=== PATIENT | male | born 1975 | race Caucasian/White ===

== ENCOUNTER 2023-07-10 04:50 | Inpatient (IN) ==
--- OUTSIDE RECORDS SUMMARY | 2023-07-10 04:54 | External Medical Summary | Summary of Care ---
Author Name Unknown Organization [facility] Address [address] [place] [facility] [place] [address] Phone [phone] Care Team Providers Care Box Office Agent Name Role Phone Vineet Alejandra MD Primary Care Provider + Reason for Visit * Reason Comments eRx-Medication Refill Encounter Details Date Type Department Care Team Description 03/24/2023 Refill Cardiology, [facility] [address] [place] [address] Doc Cunningham, [address] [place] [address] Dyslipidemia, goal LDL below 100* Allergies No known active allergiesdocumented as of this encounter (statuses as of 03/24/2023) Medications Medication Sig Dispensed Refills Start Date End Date Status Ibuprofen 200 MG Capsule Take 3 Capsules by mouth every 4 hours as needed for Pain. 30 Cap 0 06/04/2015 Active Pseudoephedrine-g uaiFENesin ER 120-1200 MG Tablet Extended Release 12 Hour Take 1 Tablet by mouth in the morning and 1 Tablet before bedtime. 0 Active Albuterol Sulfate HFA 108 (90 Base) MCG/ACT Inhalation Aerosol SolutionIndicatio ns:Cough variant asthma Inhale by mouth 2 Puffs every 4 hours as needed for Cough, Shortness of Breath or Wheezing. 18 g 3 01/26/2022 Active Omeprazole 20 MG Oral Capsule Delayed Release (PriLOSEC) Use 1 tablet 30 minutes before breakfast and evening meal for persistent cough, heartburn, acid reflux symptoms. 30 Capsule 5 01/26/2022 Active Fluticasone Propionate 50 MCG/ACT Nasal Suspension (Flonase) Use 1 squirt in each nostril twice daily to reduce chronic nasal congestion and postnasal drip 32 g 6 03/29/2022 Active Additional Information Patient not taking.Reported on 03/01/2023 Fremanezumab-vfrm 225 MG/1.5ML Subcutaneous Solution Prefilled Syringe (WhistlestopovAppature)Indication s:Migraine without aura and without status migrainosus, not intractable INJECT 1.5ML (1 PEN) UNDER THE SKIN EVERY MONTH 1.5 mL 11 03/15/2022 04/09/20 23 Active Azelastine HCl 137 MCG/SPRAY Nasal Solution SPRAY 2 SPRAYS INTO EACH NOSTRIL IN THE MORNING AND SPRAY 2 SPRAYS INTO EACH NOSTRIL BEFORE BEDTIME 90 mL 4 10/15/2022 Active SUMAtriptan Succinate 100 MG Oral Tablet TAKE 1 TABLET BY MOUTH ONCE FOR 1 DOSE AT ONSET OF MIGRAINE. MAY REPEAT IN 2 HOURS, BUT NO MORE THAN 2 TABLETS IN 24 HOURS 12 Tablet 5 03/07/2023 Active Budesonide-Formot ld Fumarate 160-4.5 MCG/ACT Inhalation Aerosol (Symbicort) Inhale 2 Puffs by mouth in the morning and 2 Puffs before bedtime. Uses needed for worsening/persis tent cough, wheeze or shortness of breath. 10.2 g 5 03/21/2023 Active Rosuvastatin Calcium 10 MG Oral Tablet (Crestor)Indicati ons:Dyslipidemia, goal LDL below 100 TAKE 1 TABLET BY MOUTH EVERY MORNING 90 Tablet 3 03/24/2023 Active Rosuvastatin Calcium 10 MG Oral Tablet (Crestor) Take 1 Tablet (10 mg) by mouth in the morning. 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 Gr I colon dys. Mild MR, mild mitral/aortic sclerosis. 12/19 CXR--3 wedge deformities noted-labs ordered consider DEXA Hodgkin's disease in remission 2 Overview: Stage IA. 1991. Hx chest, abd radiation. Thyroid nodule 10/04/2011 Overview: Seen outside endo Kidney cysts 10/04/2011 Overview: Benign Cough variant asthma 10/04/2011 Overview: qvar helps Family history of pancreatic cancer 09/06 Overview: 05/24 genetics screen negative. Diverticulitis documented as of this encounter (statuses as of 03/24/2023) Resolved Problems Problem Noted Date Resolved Date Cough 10/04/2011 03/14/2022 Costochondritis 03/14/2022 documented as of this encounter (statuses as of 03/24/2023) Immunizations Name Administration Dates Next Due COVID-19 mRNA, LNP-s, No Pre serve, 2-Dose Series (Moderna) 08/09/2020 Covid-19, Mrna, Lnp-s, Pf, B ivalent, 30 Mcg, IM, 12 yrs and above (IMT ([employer])) 02/26/2022 HEP A - Hepatitis A (Adult > 18 yrs) 08/26/2015, 06/06/1997 HIB PRP-OMP, 3 dose (Pedvax) 03/10/2020 Hepatitis B, 20+ yrs 10/02/2015,08/26/2015 Meningococcal B, 2/3-Dose Se basilia (TRUMENBA) 04/16/2021,03/10/2020,03/08/2019 Meningococcal MCV4O Conjugat e Vaccine (Menveo) 04/16/2021,03/08/2019 Pneumococcal Conjugate Vacc, 13 Valent (Prevnar) 04/05/2017 Pneumococcal Polysaccharide PPV23 (Pneumovax) 08/01/2017 SEASONAL INFLUENZA, PF, 6 M & Above, IM , (FLULAVAL or FLUZONE) 02/26/2022,02/26/2021,02/21/2020,03/08,03/30/2017 Seasonal Influenza, Quadriva lent, No Preserve, IM 04/25/2018,03/16/2015 Seasonal Influenza, Split, I IV3, With Preserve, Inj 05/25/2016,02/04/2011 TDAP (age 10 and older)(Boostrix) 02/20/2019 TDAP (age 11 and older)(Adacel) 02/04/2010 Typhoid VICPs Parenteral, 2 years and above (Typhim ) 08/26/2015 documented as of this encounter Social History Tobacco Use Types Packs/Day Years Used Date Smoking Tobacco: Never Smokeless Tobacco: Never Comments:no passive smoke Alcohol Use Standard Drinks/Week Comments Yes 0 (1 standard drink = 0.6 oz pur e alcohol) 1 -2drink /day Food Insecurity Answer Date Recorded Within the past 12 months, y ou worried that your food would run out before you got money to buy more. Never true 03/08/2019 Within the past 12 months, t he food you bought just didn't last and you didn't have money to get more. Never true 03/08/2019 Sex Assigned at Date Recorded Male 02/21/2023 6:45 PM E DT Job Start Date Occupation Industry Not on file Not on file Not on file documented as of this encounter Miscellaneous Notes * Telephone Encounter - Doc Cunningham DO - 03/24/2023 1:35 PM EDTSigned Prescriptions: Disp Refills Rosuvastatin Calcium 10 MG Oral Tablet (Cr*90 Tab*3 Sig: TAKE 1 TABLET BY MOUTH EVERY MORNING Authorizing Provider: DOC CUNNINGHAM * Telephone Encounter - MERCEDES Wang - 03/24/2023 1:10 PM EDTPending Prescriptions: Disp Refills Rosuvastatin Calcium 10 MG Oral Tablet (Cr*90 Tab*3 Sig: TAKE 1 TABLET BY MOUTH EVERY MORNING * Telephone Encounter - MERCEDES Wang - 03/24/2023 1:10 PM EDT Did you pend patient's preferred pharmacy and medication before forwarding?yes Pharmacy: [facility] [id number] [place] Pending Prescriptions: Disp Refills Rosuvastatin Calcium 10 MG Oral Tablet (C*90 Tab*3 Sig: TAKE 1 TABLET BY MOUTH EVERY MORNING Last Visit: 04/15/2022 (in office), Visit date not found (telemedicine) Next Visit: Visit date not found If no future appointments scheduled, and last appointment is greater than a year ago, please schedule patient for a follow-up appointment Last date the medication was ordered: 04-16-2022 Is this request for a controlled substance?No Urine Drug Screen:No results found for this or any previous visit. Patient Phone Numbers Labs: Lab Results Component Value Date/Time CREAT 1.0 03/11/2021 12:00 PM CREAT 1.0 04/07/2020 08:53 AM POTASSIUM 4.8 03/11/2021 12:00 PM POTASSIUM 4.8 04/07/2020 08:53 AM LDLCALC 154 (H) 04/07/2020 08:53 AM LDLDIRECT 95 07/15/2022 12:39 PM LDLDIRECT NOT APPLICABLE 04/07/2020 08:53 AM ALT 27 04/15/2022 02:25 PM HGBA1C 5.8 (H) 03/15/2022 12:33 PM HGBA1C 5.8 (H) 04/07/2020 08:53 AM documented in this encounter Plan of Treatment Upcoming Encounters Date Type Specialty Care Team Description 06/23/2023 Office Visit Allergy & Immunology James Choi MD [address] [place] [address], [place] [address] Health Maintenance Due Date Last Done Comments HIV Screening 1988 Hepatitis C Screening 12/20/1991 Hepatitis B (3 of 3 - 19+ 3-dose series) 02/26/2016 10/02/2015, 08/26/2015 Colonoscopy 2018 Fecal Occult Blood Test 2018 Sigmoidoscopy 2018 Depression Screening 09/04/2021 09/04/2020 COVID-19 Vaccine (3 - Mixed Product risk series) 03/26/2022 02/26/2022, 08/09/2020 Pneumococcal Vaccine: Pediatrics (0 to 5 Years) and At-Risk Patients (6 to 64 Years) (3 - PPSV23 or PCV20) 08/01/2022 08/01/2017, 04/05/2017 Influenza Vaccine (FLU shot) (#1) 2023 02/26/2022, 02/26/2021, 02/21/2020, Additional history exists HbA1c 03/15/2023 03/15/2022, 11/2020, 04/07/2020, Additional history exists Meningitis B Vaccine (Bexsero/Trumemba) (4 of 4 - Increased Risk Trumenba 3-dose series) 04/16/2023 04/16/2021, 03/10/2020, 03/08/2019 Cologuard 04/02/2025 04/02/2022, 03/07, 03/28/2022 Colorectal Cancer Screening 04/02/2025 MENINGOCOCCAL (MENACTRA/MENVEO) (3 - Risk 2-dose series) 04/16/2026 04/16/2021, 03/08/2019 Lipid Panel 07/15/2027 07/15/2022, 04/06, 04/07/2020, Additional history exists DTaP,Tdap,and Td Vaccines (3 - Td or Tdap) 02/20/2029 02/20/2019, 02/04/2010 GARDASIL-HPV IMMUNIZATION SERIES Aged Out No longer eligible based on patient's age to complete this topic documented as of this encounter Medical Devices Not on filedocumented as of this encounter Visit Diagnoses Diagnosis Dyslipidemia, goal LDL below 100- Primary Other and unspecified hyperlipidemia documented in this encounter Care Teams Box Office Agent Relationship Specialty Start Date End Date Vineet Alejandra MD [address] [place] [address] PCP - General Family Medicine 03/16/15 documented as of this encounter
--- OUTSIDE RECORDS SUMMARY | 2023-07-10 04:54 | External Medical Summary | Summary of Care ---
Author Name Unknown Organization [facility] Address [address] [place] [address] Phone [phone] Care Team Providers Care Purification Supervisor Name Role Phone Vineet Alejandra MD Primary Care Provider + Reason for Visit * Reason Onset Date Comments Medication Pre-auth 01/07/2023 Encounter Details Date Type Department Care Team Description 01/07/2023 Telephone Family Practice [facility] [address] [employer] [facility] [place] [address] Vineet Alejandra MD [address] [employer] [facility] [id number] Medication Pre-auth Allergies No known active allergiesdocumented as of this encounter (statuses as of 01/21/2023) Medications Medication Sig Dispensed Refills Start Date End Date Status Ibuprofen 200 MG Capsule Take 3 Capsules by mouth every 4 hours as needed for Pain. 30 Cap 0 06/04/2015 Active Pseudoephedrine-gua iFENesin ER 120-1200 MG Tablet Extended Release 12 Hour Take 1 Tablet by mouth in the morning and 1 Tablet before bedtime. 0 Active Albuterol Sulfate HFA 108 (90 Base) MCG/ACT Inhalation Aerosol SolutionIndications :Cough variant asthma Inhale by mouth 2 Puffs every 4 hours as needed for Cough, Shortness of Breath or Wheezing. 18 g 3 01/26/2022 Active Budesonide-Formoter ol Fumarate 160-4.5 MCG/ACT Inhalation Aerosol (Symbicort) Inhale by mouth 2 Puffs in the morning AND 2 Puffs before bedtime. Uses needed for worsening/persist ent cough, wheeze or shortness of breath. 10.2 g 5 01/26/2022 Active Omeprazole 20 MG Oral Capsule Delayed Release (PriLOSEC) Use 1 tablet 30 minutes before breakfast and evening meal for persistent cough, heartburn, acid reflux symptoms. 30 Capsule 5 01/26/2022 Active Fluticasone Propionate 50 MCG/ACT Nasal Suspension (Flonase) Use 1 squirt in each nostril twice daily to reduce chronic nasal congestion and postnasal drip 32 g 6 03/29/2022 Active Rosuvastatin Calcium 10 MG Oral Tablet (Crestor) Take 1 Tablet (10 mg) by mouth in the morning. 30 Tablet 11 04/16/2022 Active Fremanezumab-vfrm 225 MG/1.5ML Subcutaneous Solution Prefilled Syringe ([employer])Indications: Migraine without aura and without status migrainosus, not intractable INJECT 1.5ML (1 PEN) UNDER THE SKIN EVERY MONTH 1.5 mL 11 03/15/2022 03/15/2023 Active Azelastine HCl 137 MCG/SPRAY Nasal Solution [...] TABLETS IN 24 HOURS 12 Tablet 5 10/31/2022 Active documented as of this encounter (statuses as of 01/21/2023) Active Problems Problem Noted Date Skin lesion 09/16/2022 Prediabetes 04/16/2019 Overview: Per Prediabetes protocol S/P splenectomy 03/08/2019 Migraine without aura 03/08/2019 Rhinitis, nonallergic 06/10/2016 Heartburn 06/10/2016 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 Gr I colon dys. Mild MR, mild mitral/aortic sclerosis. 12/19 CXR--3 wedge deformities noted-labs ordered consider DEXA Hodgkin's disease in remission 2 Overview: Stage IA. 1992. Hx chest, abd radiation. Thyroid nodule 10/04/2011 Overview: Seen outside endo Kidney cysts 10/04/2011 Overview: Benign Cough variant asthma 10/04/2011 Overview: qvar helps Family history of pancreatic cancer 09/06 Overview: 05/24 genetics screen negative. Diverticulitis documented as of this encounter (statuses as of 01/21/2023) Resolved Problems Problem Noted Date Resolved Date Cough 10/04/2011 03/14/2022 Costochondritis 03/14/2022 documented as of this encounter (statuses as of 01/21/2023) Immunizations Name Administration Dates Next Due COVID-19 mRNA, LNP-s, No Pre serve, 2-Dose Series (Moderna) 08/09/2020 Covid-19, Mrna, Lnp-s, Pf, B ivalent, 30 Mcg, IM, 12 yrs and above (TDX) 02/26/2022 HEP A - Hepatitis A (Adult > 18 yrs) 08/26/2015, 06/06/1997 HIB 3 dose (Pedvax) 03/10/2020 Hepatitis B, 20+ yrs 10/02/2015,08/26/2015 Meningococcal B, 2/3-Dose Se basilia (TRUMENBA) 04/16/2021,03/10/2020,03/08/2019 Meningococcal MCV4O Conjugat e Vaccine (Menveo) 04/16/2021,03/08/2019 Pneumococcal Conjugate Vacc, 13 Valent (Prevnar) 04/05/2017 Pneumococcal Polysaccharide PPV23 (Pneumovax) 08/01/2017 Seasonal Influenza, Quadriva lent, No Preserve, 6 Mons & Above, IM 02/26/2022,02/26/2021,02/21/2020,03/08,03/30/2017 Seasonal Influenza, Quadriva lent, No Preserve, IM 04/25/2018,03/16/2015 Seasonal Influenza, Split, I IV3, With Preserve, Inj 05/25/2016,02/04/2011 TDAP (age 10 and older)(Boostrix) 02/20/2019 TDAP (age 11 and older)(Adacel) 02/04/2010 Typhoid Parenteral (2 Years And Above) 6 documented as of this encounter Social History [...] true 03/08/2019 Sex Assigned at Date Recorded Not on file Job Start Date Occupation Industry Not on file Not on file Not on file documented as of this encounter Miscellaneous Notes * Telephone Encounter - Melissa Carlin LPN - 01/21/2023 8:56 AM EDT Prior auth approved. * Telephone Encounter - CURTIS Haas - 01/07/2023 1:22 PM EDT Prior auth submitted on [email or web address] await response. * Telephone Encounter - Marya Mercado CPhT - 01/07/2023 12:01 PM EDT New or re-auth: re-auth Patient Kiet Herrera needs a prior authorization for their Ajovy through their [employer] insurance. ID: [id number] [id number] PCN:[facility] Target ship date is 01/10. Thank you very much, Marya Mercado [facility] [employer] [facility] 01/07/2023,12:02 PM documented in this encounter Plan of Treatment Upcoming Encounters Date Type Specialty Care Team Description 04/15/2023 Office Visit Cardiology Doc Cunningham, [address] [place] [address] 06/23/2023 Office Visit Allergy & Immunology James Choi MD [address] [facility] [place] [address] Health Maintenance Due Date Last Done Comments HIV Screening 1988 Hepatitis C Screening 12/20/1991 Hepatitis B (3 of 3 - 19+ 3-dose series) 02/26/2016 10/02/2015, 08/26/2015 Colonoscopy 2018 Fecal Occult Blood Test 2018 Sigmoidoscopy 2018 Depression Screening, Annual for Pts 12 and Over 09/04/2021 09/04/2020 COVID-19 Vaccine (3 - Mixed [...] Not on filedocumented as of this encounter Care Teams Purification Supervisor Relationship Specialty Start Date End Date Vineet Alejandra MD [address] [place] [address] PCP - General Family Medicine 03/16/15 documented as of this encounter
--- OUTSIDE RECORDS SUMMARY | 2023-07-10 04:54 | External Medical Summary | Summary of Care ---
Author Name Unknown Organization [facility] Address [address] [place] [address] Phone [phone] Care Team Providers Care Parts Representative Name Role Phone Vineet Helton MD Primary Care Provider + Reason for Visit * Reason Comments Medication Refill Encounter Details Date Type Department Care Team (Late st Contact Info) Description 03/30/2023 Refill Family Practice [facility] [address] [place] [address] Vineet Helton MD [address] [facility] [place] [address] Migraine without aura and without status migrainosus, not intractable Allergies No known active allergiesdocumented as of this encounter (statuses as of 03/30/2023) Medications Medication Sig Dispensed Refills Start Date End Date Status Ibuprofen 200 MG Capsule Take 3 Capsules by mouth every 4 hours as needed for Pain. 30 Cap 0 06/04/2015 Active Pseudoephedrine-gu aiFENesin ER 120-1200 MG Tablet Extended Release 12 Hour Take 1 Tablet by mouth in the morning and 1 Tablet before bedtime. 0 Active Albuterol Sulfate HFA 108 (90 Base) MCG/ACT Inhalation Aerosol SolutionIndication s:Cough variant asthma Inhale by mouth 2 Puffs [...] Additional Information Patient not taking.Reported on 03/01/2023 Azelastine HCl 137 MCG/SPRAY Nasal Solution SPRAY [...] 24 HOURS 12 Tablet 5 03/07/2023 Active Budesonide-Formote rol Fumarate 160-4.5 MCG/ACT Inhalation Aerosol (Symbicort) Inhale 2 Puffs by mouth in the morning and 2 Puffs before bedtime. Uses needed for worsening/persis tent cough, wheeze or shortness of breath. 10.2 g 5 03/21/2023 Active Rosuvastatin Calcium 10 MG Oral Tablet (Crestor)Indicatio ns:Dyslipidemia, goal LDL below 100 TAKE 1 TABLET BY MOUTH EVERY MORNING 90 Tablet 3 03/24/2023 Active Ajovy 225 MG/1.5ML Subcutaneous Solution Prefilled Syringe (Fremanezumab-vfrm )Indications:Migra ine without aura and without status migrainosus, not intractable INJECT 1.5ML (1 PEN) UNDER THE SKIN EVERY MONTH 1.5 mL 11 03/30/2023 4 Active Fremanezumab-vfrm 225 MG/1.5ML Subcutaneous Solution Prefilled Syringe (Ajovy)Indications :Migraine without aura and without status migrainosus, not intractable INJECT 1.5ML (1 PEN) UNDER THE SKIN EVERY MONTH 1.5 mL 11 03/15/2022 3 Discontinue d(Refill) documented as of this encounter (statuses as of 03/30/2023) Active Problems Problem Noted Date Diagnosed Date Skin lesion 09/16/2022 Prediabetes 04/16/2019 Overview: Per Prediabetes protocol S/P splenectomy 03/08/2019 Migraine without aura 03/08/2019 Rhinitis, nonallergic 06/10/2016 Heartburn 06/10/2016 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 Gr I colon dys. Mild MR, mild mitral/aortic sclerosis. 12/19 CXR--3 wedge deformities noted-labs ordered consider DEXA Hodgkin's disease in remission 10/04/2011 Overview: Stage IA. 1991. Hx chest, abd radiation. Thyroid nodule 10/04/2011 Overview: Seen outside endo Kidney cysts 10/04/2011 Overview: Benign Cough variant asthma 10/04/2011 Overview: qvar helps Family history of pancreatic cancer 10/04/2011 Overview: 05/24 genetics screen negative. Diverticulitis documented as of this encounter (statuses as of 03/30/2023) Resolved Problems Problem Noted Date Diagnosed Date Resolved Date Cough 10/04/2011 03/14/2022 Costochondritis 03/14/2022 documented as of this encounter (statuses as of 03/30/2023) Immunizations Name Administration Dates Next Due COVID-19 mRNA, LNP-s, No Pre serve, 2-Dose Series (Moderna) 08/09/2020 Covid-19, Mrna, Lnp-s, Pf, B ivalent, 30 Mcg, IM, 12 yrs and above (Pfizer) 02/26/2022 HEP A - Hepatitis A (Adult [...] oz pur e alcohol) 1 -2drink /day Sex and Gender Information Value Date Recorded Sex Assigned at Male 02/21/2023 6:45 PM EDT Gender Identity Male 02/21/2023 6:45 PM EDT Sexual Orientation Straight 02/21/2023 6: 45 PM EDT Job Start Date Occupation Industry Not on file Not on file Not on file documented as of this encounter Miscellaneous Notes * Telephone Encounter - Vineet Helton MD - 03/30/2023 7:40 PM EDTSigned Prescriptions: Disp Refills Ajovy 225 MG/1.5ML Subcutaneous Solution P*1.5 mL 11 Sig: INJECT1.5ML (1 PEN) UNDER THE SKIN EVERY MONTHAuthorizing Provider: VINEET HELTON documented in this encounter Plan of Treatment Upcoming Encounters Date Type Department Care Team (Late st Contact Info) Description 06/23/2023 1:30 PM EST Office Visit Allergy/Immunology State Amanda Herrera [address] [facility] [place] [address] James Choi MD [address] [facility] [place] [address] Health Maintenance Due Date Last Done Comments [...] as of this encounter Visit Diagnoses Diagnosis Migraine without aura and without status migrainosus, not intractable Migraine without aura, without mention of intractable migraine without mention of status migrainosus documented in this encounter Care Teams Parts Representative Relationship Specialty Start Date End Date Vineet Helton MD [address] [facility] [place] [address] PCP - General Family Medicine 03/16/15 documented as of this encounter
--- OUTSIDE RECORDS SUMMARY | 2023-07-10 04:54 | External Medical Summary | Summary of Care ---
Author Name Unknown Organization [facility] Address [address] [place] [address] Phone [phone] Care Team Providers Care Attorney Lawyer Name Role Phone Vineet Alejandra MD Primary Care Provider + Reason for Visit * Reason Comments Allergy Return Encounter Details Date Type Department Care Team (Latest Contact Info) Description 06/23/2023 1:30 PM EST Office Visit Allergy/Immunology State Amanda Herrera [address] [facility] [address] [place] [id number] James Choi MD [address] [place] [address] Chronic cough*; Rhinitis, nonallergic; PND (post-nasal drip); Cough variant asthma; Mild persistent asthma without complication; History of gastroesophageal reflux (GERD) Allergies No known active allergiesdocumented as of this encounter (statuses as of 06/23/2023) Medications Medication Sig Dispensed Refills Start Date [...] 24 HOURS 12 Tablet 5 03/07/2023 Active Budesonide-Formoter ol Fumarate 160-4.5 MCG/ACT Inhalation Aerosol (Symbicort) Inhale 2 Puffs by mouth in the morning and 2 Puffs before bedtime. Uses needed for worsening/persist ent cough, wheeze or shortness of breath. 10.2 g 5 03/21/2023 Active Rosuvastatin Calcium 10 MG Oral Tablet (Crestor)Indication s:Dyslipidemia, goal LDL below 100 TAKE 1 TABLET BY MOUTH EVERY MORNING 90 Tablet 3 03/24/2023 Active Ajovy 225 MG/1.5ML Subcutaneous Solution Prefilled Syringe (Fremanezumab-vfrm) Indications:Migrain e without aura and without status migrainosus, not intractable INJECT 1.5ML (1 PEN) UNDER THE SKIN EVERY MONTH 1.5 mL 11 03/30/2023 03/29/2024 Active Additional Information Patient not taking.Reported on 06/23/2023 documented as of this encounter (statuses as of 06/23/2023) Active Problems Problem Noted Date Diagnosed Date Skin lesion 09/16/2022 Prediabetes 04/16/2019 Overview: Per Prediabetes protocol S/P splenectomy 03/08/2019 Migraine without aura 03/08/2019 Rhinitis, nonallergic 06/10/2016 Heartburn 06/10/2016 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 Gr I colon dys. Mild MR, mild mitral/aortic sclerosis. 12/19 CXR--3 wedge deformities noted-labs ordered consider DEXA Hodgkin's disease in remission 10/04/2011 Overview: Stage IA. 1992. Hx chest, abd radiation. Thyroid nodule 10/04/2011 Overview: Seen outside endo Kidney cysts 10/04/2011 Overview: Benign Cough variant asthma 10/04/2011 Overview: qvar helps Family history of pancreatic cancer 10/04/2011 Overview: 05/24 genetics screen negative. Diverticulitis documented as of this encounter (statuses as of 06/23/2023) Resolved Problems Problem Noted Date Diagnosed Date Resolved Date Cough 10/04/2011 03/14/2022 Costochondritis 03/14/2022 documented as of this encounter (statuses as of 06/23/2023) Immunizations Name Administration Dates Next Due COVID-19 mRNA, LNP-s, No Pre serve, 2-Dose Series (Moderna) 08/09/2020 Covid-19, Mrna, Lnp-s, Pf, B ivalent, 30 Mcg, IM, 12 yrs and above (Gozent) 02/26/2022 HEP A - Hepatitis A (Adult > 18 yrs) 08/26/2015, 06/06/1997 HIB PRP-OMP, 3 dose (Pedvax) 03/10/2020 Hepatitis B, 20+ yrs 10/02/2015,08/26/2015 Meningococcal B, 2/3-Dose Se basilia (TRUMENBA) 04/16/2021,03/10/2020,03/08/2019 Meningococcal MCV4O Conjugat e Vaccine (Menveo) 04/16/2021,03/08/2019 Pneumococcal Conjugate Vacc, 13 Valent (Prevnar) 04/05/2017 Pneumococcal Polysaccharide PPV23 (Pneumovax) 08/01/2017 Seasonal Influenza, PF, 6 M & above, IM , (FluLaval or Fluzone) 02/26/2022,02/26/2021,02/21/2020,03/08,03/30/2017 Seasonal Influenza, Quadriva lent, No Preserve, IM 04/25/2018,03/16/2015 Seasonal Influenza, Split, I IV3, With Preserve, Inj 05/25/2016,02/04/2011 TDAP (age 10 and older)(Boostrix) 02/20/2019 TDAP (age 11 and older)(Adacel) 02/04/2010 Typhoid VICPs Parenteral, 2 years and above (Typhim ) 08/26/2015 documented as of this encounter Social History Tobacco Use Types Packs/Day Years Used Date Smoking Tobacco: Never Smokeless Tobacco: Never Tobacco Cessation:Counseling Given: Not Answered Comments:no passive smoke Alcohol Use Standard Drinks/Week Comments Yes 0 (1 standard drink = 0.6 oz pur e alcohol) 1 -2drink /day PHQ-2 Answer Date Recorded PHQ Adult Total Score 0 09/04/2020 Hunger Vital Sign Answer Date Recorded Worried About Running Out of Food in the Last Ye ar Never true 03/08/2019 Ran Out of Food in the Last Year Never true 03/08/2019 Sex and Gender Information Value Date Recorded Sex Assigned at Male 02/21/2023 6:45 PM EDT Gender Identity Male 02/21/2023 6:45 PM EDT Sexual Orientation Straight 02/21/2023 6: 45 PM EDT Job Start Date Occupation Industry Not on file Not on file Not on file documented as of this encounter Last Filed Vital Signs Vital Sign Reading Time Taken Comments Blood Pressure 120/78 06/23/2023 1:34 PM EST Pulse 95 06/23/2023 1:34 PM EST Temperature 36.2 C (97.2 F) 06/23/2023 1:34 PM ES T Respiratory Rate 16 06/23/2023 1:34 PM EST Oxygen Saturation - - Inhaled Oxygen Concentration - - Weight 85.4 kg (188 lb 4.8 oz) 06/23/2023 1:34 P M EST Height - - Body Mass Index 27.02 05/11/2022 6:54 PM EST documented in this encounter Patient Instructions * Patient Instructions* James Choi MD - 06/23/2023 1:33 PM EST Nonallergic Trigger Avoidance Measures: Do not smoke, no smoking allowed in house or vehicles; avoid wood, coal burning stoves , and kerosene heaters; avoid strong smelling perfumes and perfumed cosmetics; do not use incense, potpourri, or scented candles, air fresheners in the home; avoid chemicalodors and weather changes (abrupt changes in temperature and humidity). If unavoidable, use a HEPA air-cleaning device. documented in this encounter Progress Notes * James Choi MD - 06/23/2023 1:37 PM EST SUBJECTIVE: Kiet is here today for follow-up of his cough, mild persistent asthma and nonallergic rhinitis. Hewas last seen in our office proximally 6 months ago. Overall he has been doing fairly well. He doesnote occasional sneezing and rhinorrhea. For his nasal symptoms, he typically takes Astelin 2 sprays to each nostril twice daily. In the past he has been on Flonase but started to have recurrent nosebleeds so this was discontinued. He denies any sinus infections nor ear infections. He did have a viral upper respiratory infection in the fall but this did not seem to bother him from a pulmonary standpoint. He does have a questionable history of asthma but denies use of albuterol since last visit. In the past he has been on Symbicort intermittently but has not needed this in 6 months. He denies any chronic cough, wheezing, nor shortness of breath. Reports no nocturnal respiratory symptoms. He reports no ER visits nor urgent care visits secondary to pulmonary symptoms. Asthma control test obtained on October 28, 2022 revealed a score of 14, which suggest moderately controlled asthma. Asthma control test 03/29/22 revealed a score of 23, consistent with well- controlled asthma. Asthma control test 01/26/22 revealed a score of 21, consistent with well- controlled asthma. Asthma Control Test Summary, Results are Patient Reported The overall score is: 20 suggesting: Well Controlled asthma for the survey taken on: 02/21/2020 8:37:40 AM. Asthma Control Test Summary, Results are Patient Reported The overall score is: 18 suggesting: Moderately Controlled asthma for the survey taken on: 05/04/2019 9:59:05 AM. 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 30 Cap 0 Pseudoephedrine-guaiFENesin ER 120-1200 MG Tablet Extended Release 12 Hour Take 1 Tablet by mouth in the morning and 1 Tablet before bedtime. Albuterol Sulfate HFA 108 (90 Base) MCG/ACT Inhalation Aerosol Solution Inhale by mouth 2 Puffs every 4 hours as needed for Cough, Shortness of Breath or Wheezing. 18 g 3 Omeprazole 20 MG Oral Capsule Delayed Release (PriLOSEC) Use 1 tablet 30 minutes before breakfast and evening meal for persistent cough, heartburn, acid reflux symptoms. 30 Capsule 5 Azelastine HCl 137 MCG/SPRAY Nasal Solution SPRAY 2 SPRAYS INTO EACH NOSTRIL IN THE MORNING AND SPRAY 2 SPRAYS INTO EACH NOSTRIL BEFORE BEDTIME 90 mL 4 SUMAtriptan Succinate 100 MG Oral Tablet TAKE 1 TABLET BY MOUTH ONCE FOR 1 DOSE AT ONSET OF MIGRAINE. MAY REPEAT IN 2 HOURS, BUT NO MORE THAN 2 TABLETS IN 24 HOURS 12 Tablet 5 Budesonide-Formoterol Fumarate 160-4.5 MCG/ACT Inhalation Aerosol (Symbicort) Inhale 2 Puffs by mouth in the morning and 2 Puffs before bedtime. Uses needed for worsening/persistent cough, wheeze or shortness of breath. 10.2 g 5 Rosuvastatin Calcium 10 MG Oral Tablet (Crestor) TAKE 1 TABLET BY MOUTH EVERY MORNING 90 Tablet 3 Fluticasone Propionate 50 MCG/ACT Nasal Suspension (Flonase) Use 1 squirt in each nostril twice daily to reduce chronic nasal congestion and postnasal drip (Patient not taking: Reported on 03/01/2023)32 g 6 Ajovy 225 MG/1.5ML Subcutaneous Solution Prefilled Syringe (Fremanezumab-vfrm) INJECT 1.5ML (1 PEN)UNDER THE SKIN EVERY MONTH (Patient not taking: Reported on 06/23/2023) 1.5 mL 11 No current facility-administered medications for this visit. Review of patient's allergies indicates: No Known Allergies Family History Problem Relation Age of Onset Cancer Mother 67 pancreatic Cancer Grandfather (Maternal) 70 pancreatic No Past Hx Father not in touch Cancer Other great uncle paternal-pancreatic Other (twin brother) Brother in [place]. Social History Tobacco Use Smoking status: Never Smokeless tobacco: Never Tobacco comments: no passive smoke Substance Use Topics Alcohol use: Yes Comment: 1 -2drink /day Drug use: No Social History Narrative Environment/Occupation/Activities of Daily Living: He is living in a 2 story house. Heat pump and central air conditioning. No basement. Indoor pets include 3 cats and 1 dog. Bedroom is 2nd floor and carpeted. Sleeps on a mattress bed with 1 foam pillow. 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 He is exposed to chemicals/insects, but no specific occupational related worsening of symptoms noted. Mostly working from home currently BP 120/78 | Pulse 95 | Temp 36.2 C (97.2 F) | Resp 16 | Wt 85.4 kg (188 lb 4.8 oz) | BMI 27.02kg/m | BSA 2.05 m PHYSICAL EXAM: GENERAL: No acute distress. No cough during exam EYES: Conjunctiva- normal; Eyelids - normal EARS: TM's - clear NOSE: Red mucosa; Mild Inferior turbinate edema; no nasal polyps or mucopus; Septum - normal OROPHARYNX: Mild erythema and moderate cobblestoning; No lesions, exudates NECK: Supple; No thyroid enlargment or cervical adenopathy RESPIRATORY: Clear to A and P; No wheezes; Good air movement bilaterally; CARDIOVASCULAR: RRR; No gallops, rubs, clicks, or murmurs. LYMPHATIC: No significant adenopathy noted SKIN: No evidence atopic dermatitis; no urticaria or angioedema Normal skin quality OBJECTIVE DATA: 10/28/2022: Spirometry was obtained in our office and this revealed no evidence of obstructive nor restrictive pulmonary impairment. There was no significant change after bronchodilator therapy today. CT SINUS FUSION WO [id number]/12/2020 3:57 pm FINDINGS ANTERIOR CRANIAL FOSSA: The lamina papyracea, cribriform plates and fovea ethmoidalis are intact. No polypoid mass within the olfactory recesses. NASAL SEPTUM/NASAL CAVITY: Minimal leftward deviation of the posterior nasal septum. Multifocal narrowing along the nasal cavity due to lateralized superior turbinates. RIGHT FRONTAL SINUS: Clear. RIGHT FRONTAL RECESS: Mildly narrowed by adjacent suprabullar air cells. LEFT FRONTAL SINUS: Hypoplastic but otherwise clear. LEFT FRONTAL RECESS: Mildly narrowed by adjacent suprabullar air cells. ETHMOID AIR CELLS: Clear. RIGHT MAXILLARY SINUS: Large mucous retention cyst within the alveolar recess. RIGHT OSTIOMEATAL COMPLEX: The sinus outflow tract is narrowed along the infundibulum by mucosal thickening in conjunction with a low lying bulla ethmoidalis and partially opacified Kvng cell. LEFT MAXILLARY SINUS: Moderate mucosal thickening at the alveolar recess. LEFT OSTIOMEATAL COMPLEX: The outflow infundibulum is marginated by partially aerated Kvng cells without significant narrowing. SPHENOID SINUSES: Clear. SPHENOETHMOIDAL RECESSES: Patent. The bony covering of the bilateral carotid canals is intact. VISUALIZED MASTOID AIR CELLS: Clear. ORBITS: Unremarkable. VISUALIZED INTRACRANIAL CONTENTS: Unremarkable. TEMPOROMANDIBULAR JOINTS: Intact. OTHER FINDINGS: None. IMPRESSION Minimal leftward deviation of the posterior nasal septum. Areas of mucosal thickening in the paranasal sinuses and along their respective drainage pathways. Sinonasal anatomic variations which may predispose the patient to sinus inflammation as above. RADIOGRAPHS OF THE PARANASAL SINUSES-02/01/2019 FINDINGS Left frontal sinus is hypoplastic. Ovoid opacity along the inferior aspect of the right maxillary sinus. The nasal septum is slightly deviated to the left. Right maxillary central incisor dental implant. Mastoid air cells appear well aerated. No displaced fracture. IMPRESSION IMPRESSION 1. Ovoid opacity along the inferior aspect of the right maxillary sinus is nonspecific and may represent a retention cyst or polyp. A paranasal sinus CT scan can be performed for further evaluation as clinically warranted. Spirometry performed on September 19, 2018 revealed normal spirometry. FEV1/FVC was 86% FEV1 was 3.80, 93% of predicted. FVC was 4.44, 85% of predicted. 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 Scattered areas of atelectasis or scarring. Pleura: No pleural effusions. Heart: Normal size. No pericardial effusion. Vessels: Within normal limits. Mediastinum and amparo: With normal limits. Chest wall and lower neck: Within normal limits. Upper abdomen: Prior splenectomy. Bones: Degenerative changes of the spine. Impression IMPRESSION: Lung rads 2. Few scattered pulmonary micronodules. Follow-up low-dose chest CT in 1 year. Full pft's 09/07/16 Baseline spirometry is normal. Following bronchodilator, there is no significant change. Lung volumes are normal. Uncorrected diffusion capacity is mildly decreased at 64% predicted. Please note that abnormalities in DLCO are nonspecific and may be seen with anemia vs pulmonary airways, parenchymal, or vascular disease. Clinical correlation is advised. Serial flow volume loops are normal. When compared to previous pulmonary function testing performed 06/10/2016, there has been no significant change.This interpretation has been electronically signed: MIRANDA BROOKS DO 09/07/2016 07:28:10 AM EXAM: CT THORAX WITHOUT CONTRAST DATE and TIME: 08/31/2016 2:31 pm FINDINGS LINES AND DEVICES: None. MEDIASTINUM AND AMPARO: Unremarkable. HEART: There is no pericardial effusion. VESSELS: Unremarkable. LARGE AIRWAYS: Unremarkable. LUNGS: Peribronchial linear opacities and degree of mild volume loss / retraction involving the apical posterior segment of the left upper lobe predominantly along its medial aspect. No significant bronchiectasis. No honeycombing. 4 millimeter nodule in the right lower lobe. 2 millimeter subpleural nodule in the left lower lobe. PLEURA: There are no pleural effusions. CHEST WALL / SOFT TISSUES: There is no axillary lymphadenopathy. BONES: There are thoracic spondylotic changes. Mild lower thoracic vertebral body wedging. Levo scoliotic curvature. UPPER ABDOMEN: Patient appears to be status post splenectomy. Additional surgical clips are seen adjacent to the pancreatic head. There is some scarring or atrophy of the upper pole of the left kidney with likely a small associated cyst. Stomach is markedly distended with debris. IMPRESSION Peribronchial linear opacities/thickening and some degree of mild volume loss / retraction involving the apical posterior segment of the left upper lobe along its medial aspect. Right lower lobe left lower lobe pulmonary nodules, largest measuring 4 millimeters. Current Recommendations : -Low risk: No routine follow up -High risk: Optional CT at 12 months Additional findings as above. Authenticated By Authenticating Date Authenticating Time Reading Providers(s) SUMI HOFFMAN DO 09-02-2016 14:05 SUMI HOFFMAN DO Allergy skin testing 06/10/16 revealed all negative results in the face of adequate positive histamine controls. Spirometry 06/10/16 revealed a normal FEV1/FVC ratio of 85%. FEV1 3.77 L, 90% of predicted. Findings consistent with a normal spirometry. Chest radiography obtained 11/27/2015. FINDINGS The lungs are adequately expanded and clear. Subtle opacity within the upper right lobe along the peripheral aspect of the minor fissure likely scarring versus summation of shadows.There is no evidence of pneumothorax or pleural effusion. The cardiomediastinal silhouette and pulmonary vasculature are within normal limits. No acute osseous abnormalities are identified. Minimal wedge compression deformities of 3 thoracic vertebral bodies. IMPRESSION 1. No acute radiographic cardiopulmonary findings. 2. Minimal wedge compression deformities of lower thoracic vertebral bodies which may be chronic inthe absence of pain. Correlate with physical exam. I have personally reviewed this examination and agree with the resident/fellow physician's interpretation. Resident Physician: SMILEY JUDGE [[id number]] Radiologist: GUILHERME TENORIO MD [[id number]] ASSESSMENT: ICD-10-CM 1. Chronic cough R05.3 2. Rhinitis, nonallergic J31.0 3. PND (post-nasal drip) R09.82 4. Cough variant asthma J45.991 5. Mild persistent asthma without complication J45.30 6. History of gastroesophageal reflux (GERD) Z87.19 PLAN: Avoidance measures regarding nonallergic triggers were again recommended. For his chronic nonallergic rhinitis and his chronic postnasal drip, he will continue with Astelin 2 sprays each nostril twice daily. Given his history of nosebleeds, we will avoid regular Flonase. Flonase Sensimist 2 sprays each nostril was recommended to be added on. Should he have any further nosebleeds, use of a normal saline nasal spray is recommended for proper lubrication of his nasal mucosa. By history he has significant heartburn and gastroesophageal reflux disease.. If continued cough despite treatment of the above, anti-reflux measures and use of omeprazole 20 mg twice daily before morning and evening meals would be certainly be recommended as his acid reflux can be a contributing factor to his chronic cough as well. He is not a candidate for allergy immunotherapy as his most recent skin tests were negative. Thank you very much for allowing myself to participate in the care of your patient. Please do not hesitate to contact our office should you have any questions or concerns. James Choi MD Allergy and Immunology [facility] I spent a total of 20-29 minutes (exact time 27 mins) on the date of service in preparation, delivery, and documentation of the care provided to Kiet Herrera excluding any time spent in the performance of separately billed services. (This note was completed using the dictation program Fluency Direct. As such, there may be misspellings, word substitutions, or other variations that should not change the essence of the clinical content of this encounter note.If there is need for further clarification, please direct questions to the provider listed above.) documented in this encounter Nursing Notes * Asha Fay LPN - 06/23/2023 1:34 PM EST The pt has been properly identified by confirmation of name and date of . Pt presents for allergy return. documented in this encounter Plan of Treatment Upcoming Encounters Date Type Department Care Team (Late st Contact Info) Description 01/05/2024 1:00 PM EDT Office Visit Allergy/Immunology [facility] Diane [place] [address] [place] [id number] Rosanna Garcia PA-C [address] [place] [id number] Health Maintenance Due Date Last Done Comments [...] as of this encounter Visit Diagnoses Diagnosis Chronic cough- Primary Cough Rhinitis, nonallergic Chronic rhinitis PND (post-nasal drip) Postnasal drip Cough variant asthma Mild persistent asthma without complication Unspecified asthma History of gastroesophageal reflux (GERD) Personal history of other diseases of digestive system documented in this encounter Care Teams Attorney Lawyer Relationship Specialty Start Date End Date Vineet Alejandra MD [address] [id number] PCP - General Family Medicine 03/16/15 documented as of this encounter"
--- OUTSIDE RECORDS SUMMARY | 2023-07-10 04:54 | External Medical Summary | Summary of Care ---
Author Name Unknown Organization [facility] Address [address] [place] [address] Phone [phone] Care Team Providers Care Industrial Engineering Manager Name Role Phone Vineet Alejandra MD Primary Care Provider + Reason for Visit * Reason Onset Date Comments Medication Refill 03/21/2023 Encounter Details Date Type Department Care Team Description 03/21/2023 Refill Allergy/Immunology State Amanda Herrera [address] [facility] [address] [place] [address] Ama Yu MD [address] [facility] [place] [id number] Allergies No known active allergiesdocumented as of this encounter (statuses as of 03/21/2023) Medications Medication Sig Dispensed Refills Start Date [...] Additional Information Patient not taking.Reported on 03/01/2023 Rosuvastatin Calcium 10 MG Oral Tablet (Crestor) Take 1 Tablet (10 mg) by mouth in the morning. 30 Tablet 11 04/16/2022 Active Fremanezumab-vfrm 225 MG/1.5ML Subcutaneous Solution Prefilled Syringe ([employer])Indications :Migraine without aura and without status migrainosus, not intractable INJECT 1.5ML (1 PEN) UNDER THE SKIN EVERY MONTH 1.5 mL 11 03/15/2022 3 Active Azelastine HCl 137 MCG/SPRAY Nasal Solution [...] of breath. 10.2 g 5 03/21/2023 Active Budesonide-Formote rol Fumarate 160-4.5 MCG/ACT Inhalation Aerosol (Symbicort) Inhale by mouth 2 Puffs in the morning AND 2 Puffs before bedtime. Uses needed for worsening/persis tent cough, wheeze or shortness of breath. 10.2 g 5 01/26/2022 3 Discontinue d(Refill) documented as of this encounter (statuses as of 03/21/2023) Active Problems Problem Noted Date Skin lesion [...] as of this encounter (statuses as of 03/21/2023) Resolved Problems Problem Noted Date Resolved Date Cough 10/04/2011 03/14/2022 Costochondritis 03/14/2022 documented as of this encounter (statuses as of 03/21/2023) Immunizations Name Administration Dates Next Due COVID-19 mRNA, LNP-s, No Pre serve, 2-Dose Series (Moderna) 08/09/2020 Covid-19, Mrna, Lnp-s, Pf, B ivalent, 30 Mcg, IM, 12 yrs and above ([employer]) 02/26/2022 HEP A - Hepatitis A (Adult [...] encounter Miscellaneous Notes * Telephone Encounter - Ama Yu MD - 03/21/2023 12:15 PM EDTSigned Prescriptions: Disp Refills Budesonide-Formoterol Fumarate 160-4.5 MCG*10.2 g 5 Sig: Inhale 2 Puffs by mouth in the morning and 2 Puffs before bedtime. Uses needed for worsening/persistent cough, wheeze or shortness of breath. Authorizing Provider: AMA YU * Telephone Encounter - Evita AJITH Mishra - 03/21/2023 11:48 AM EDT No prescriptions requested or ordered in this encounter Last Visit: 10/28/2022 (in office), Visit date not found (telemedicine) Next Visit: 06/23/2023 Last date the medication was ordered: 01/26/22. Health Maintenance Topic Date Due HIV Screening Never done Hepatitis C Screening Never done Hepatitis B (3 of 3 - 19+ 3-dose series) 02/26/2016 Depression Screening 09/04/2021 COVID-19 Vaccine (3 - Mixed Product risk series) 03/26/2022 Pneumococcal Vaccine: Pediatrics (0 to 5 Years) and At-Risk Patients (6 to 64 Years) (3 - PPSV23 orPCV20) 08/01/2022 Influenza Vaccine (FLU shot) (1) 02/04/2023 HbA1c 03/15/2023 Meningitis B Vaccine (Bexsero/Trumemba) (4 of 4 - Increased Risk Trumenba 3-dose series) 04/16/2023 Colorectal Cancer Screening 04/02/2025 MENINGOCOCCAL (MENACTRA/MENVEO) (3 - Risk 2-dose series) 04/16/2026 Lipid Panel 07/15/2027 DTaP,Tdap,and Td Vaccines (3 - Td or Tdap) 02/20/2029 GARDASIL-HPV IMMUNIZATION SERIES Aged Out Labs: Lab Results Component Value Date/Time CREATININE - [facility] 1.0 03/11/2021 12:00 PM CREATININE - [facility] 1.0 04/07/2020 08:53 AM Lab Results Component Value Date/Time POTASSIUM - [facility] 4.8 03/11/2021 12:00 PM POTASSIUM - [facility] 4.8 04/07/2020 08:53 AM No results found for: TSH Lab Results Component Value Date/Time LDL CHOLESTEROL (CALCULATED) - [facility] 154 (H) 04/07/2020 08:53 AM LDL CHOLESTEROL (CALCULATED) - [facility] 181 (H) 04/10/2019 09:24 AM LDL CHOLESTEROL (DIRECT MEASURE) - [facility] 95 07/15/2022 12:39 PM LDL CHOLESTEROL (DIRECT MEASURE) - [facility] 182 (H) 04/15/2022 02:25 PM LDL CHOLESTEROL (DIRECT MEASURE) - [facility] NOT APPLICABLE 04/07/2020 08:53 AM LDL CHOLESTEROL (DIRECT MEASURE) - [facility] NOT APPLICABLE 04/10/2019 09:24 AM Lab Results Component Value Date/Time ALT - [facility] 27 04/15/2022 02:25 PM Hemoglobin AIC Results: Lab Results Component Value Date/Time HEMOGLOBIN A1C - [facility] 5.8 (H) 03/15/2022 12:33 PM HEMOGLOBIN A1C - [facility] 5.9 (H) 03/11/2021 12:00 PM HEMOGLOBIN A1C - [facility] 5.8 (H) 04/07/2020 08:53 AM HEMOGLOBIN A1C - [facility] 5.9 (H) 04/10/2019 09:24 AM documented in this encounter Plan of Treatment Upcoming Encounters Date Type Specialty Care Team Description 06/23/2023 Office Visit Allergy & Immunology Ama Yu MD [address] [facility], [place] [address] Health Maintenance Due Date Last Done Comments [...] filedocumented as of this encounter Care Teams Industrial Engineering Manager Relationship Specialty Start Date End Date Vineet Alejandra MD [address] [place] [address] PCP - General Family Medicine 03/16/15 documented as of this encounter
--- OUTSIDE RECORDS SUMMARY | 2023-07-10 04:54 | External Medical Summary | Summary of Care ---
Author Name Unknown Organization [facility] Address [address] [place] [address] Phone [phone] Care Team Providers Care Laborer [employer] Name Role Phone Vineet Alejandra MD Primary Care Provider + Reason for Visit * Reason Comments Follow Up Pt here for spot on nose that comes and goes. He states that the spot with show up, bleed, scab over, and disappear. Repeatedly. He states this is ongoing for a couple of months now. Encounter Details Date Type Department Care Team Description 03/01/2023 Office Visit Dermatology Matilda Diane Combs [address] [facility] [place] [address] Nikky Clements MD [address] [facility] [place] [address] Facial telangiectasia*; Flat wart Allergies No known active allergiesdocumented as of this encounter (statuses as of 03/01/2023) Medications Medication Sig Dispensed Refills Start Date [...] Fremanezumab-vfrm 225 MG/1.5ML Subcutaneous Solution Prefilled Syringe (Lyxia)Indications: Migraine without aura and without status migrainosus, [...] as of this encounter (statuses as of 03/01/2023) Active Problems Problem Noted Date Skin lesion [...] as of this encounter (statuses as of 03/01/2023) Resolved Problems Problem Noted Date Resolved Date Cough 10/04/2011 03/14/2022 Costochondritis 03/14/2022 documented as of this encounter (statuses as of 03/01/2023) Immunizations Name Administration Dates Next Due COVID-19 mRNA, LNP-s, No Pre serve, 2-Dose Series (Moderna) 08/09/2020 Covid-19, Mrna, Lnp-s, Pf, B ivalent, 30 Mcg, IM, 12 yrs and above ([employer]) 02/26/2022 HEP A - Hepatitis A (Adult > 18 yrs) 08/26/2015, 06/06/1997 HIB PRP-OMP, 3 dose (Pedvax) 03/10/2020 Hepatitis B, 20+ yrs 10/02/2015,08/26/2015 Meningococcal B, 2/3-Dose Se basilia (TRUMENBA) 04/16/2021,03/10/2020,03/08/2019 Meningococcal MCV4O Conjugat e Vaccine (Menveo) 04/16/2021,03/08/2019 Pneumococcal Conjugate Vacc, 13 Valent (Prevnar) 04/05/2017 Pneumococcal Polysaccharide PPV23 (Pneumovax) 08/01/2017 Seasonal Influenza, PF, 6 mo ns & Above, IM , (Flulaval) 02/26/2022,02/26/2021,02/21/2020,03/08,03/30/2017 Seasonal Influenza, Quadriva lent, No Preserve, [...] on file documented as of this encounter Progress Notes * Nikky Clements MD - 03/01/2023 8:39 AM EDT SUBJECTIVE: History of Present Illness: Kiet Herrera is a 47 year old male seen today for follow up of lesions on face. Date Last Appointment: 09/27/2022 (in office), Visit date not found (telemedicine) L arm warts x years, cryo on other arm helpful at last visit. Also intermittent nasal lesion that bleeds then heals over the past year. REVIEW OF SYSTEMS: SKIN: No other new or changing moles. HEME/LYMPH: No new or enlarging lumps or bumps. MEDICA TIONS: Current Outpatient Medications Medication Sig Dispense Refill [...] of Breath or Wheezing. 18 g 3 Budesonide-Formoterol Fumarate 160-4.5 MCG/ACT Inhalation Aerosol (Symbicort) Inhale by mouth 2 Puffs in the morning AND 2 Puffs before bedtime. Uses needed for worsening/persistent cough, wheeze or shortness of breath. 10.2 g 5 Omeprazole 20 MG Oral Capsule Delayed Release (PriLOSEC) Use 1 tablet 30 minutes before breakfast and evening meal for persistent cough, heartburn, acid reflux symptoms. 30 Capsule 5 Rosuvastatin Calcium 10 MG Oral Tablet (Crestor) Take 1 Tablet (10 mg) by mouth in the morning. 30 Tablet 11 Fremanezumab-vfrm 225 MG/1.5ML Subcutaneous Solution Prefilled Syringe (Lyxia) INJECT 1.5ML (1 PEN)UNDER THE SKIN EVERY MONTH 1.5 mL 11 Azelastine HCl 137 MCG/SPRAY Nasal Solution SPRAY 2 SPRAYS INTO EACH NOSTRIL IN THE MORNING AND SPRAY 2 SPRAYS INTO EACH NOSTRIL BEFORE BEDTIME 90 mL 4 SUMAtriptan Succinate 100 MG Oral Tablet TAKE 1 TABLET BY MOUTH ONCE FOR 1 DOSE AT ONSET OF MIGRAINE. MAY REPEAT IN 2 HOURS, BUT NO MORE THAN 2 TABLETS IN 24 HOURS 12 Tablet 5 Fluticasone Propionate 50 MCG/ACT Nasal Suspension (Flonase) Use 1 squirt in each nostril twice daily to reduce chronic nasal congestion and postnasal drip (Patient not taking: Reported on 03/01/2023)32 g 6 No current facility-administered medications for this visit. ALLERG IES: Patient has no known allergies. OBJECTIVE: GEN: Healthy, alert, no distress, appears oriented, pleasant, and cooperative. SKIN: Detailed exam of hair, face including lids and lips, neck, and bilateral upper ext. (arm, hand, fingers) completed and are normal except: 1. L forearm - linear clusters of flat-topped scaly pink papules 2. R nasal bridge - cluster of telangiectases, no papules or surface change ASSESS MENT/PLAN: 1. Flat warts - reiterated natural history, barrier protection, Cryosurgery explained to the patient, verbal consent obtained, patient, site and procedure verified, time-out called, and then cryotherapy was performed with Liquid Nitrogen via cryo spray unit to 10 lesions. Location noted in physicalexam. Post op course explained. 2. 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 Discussed sun protection with patient including proper use of sunscreens and protective clothing. Makenna explained. Follow-up: as needed There were no barriers tolearning and no other pain was related to today's visit. The patient and/or person accompanying patient demonstrates understanding of the visit and treatment. Nikky Clements MD 03/01/2023 8:40 AM documented in this encounter Nursing Notes * Sabine Ramos LPN - 03/01/2023 8:26 AM EDT Patient identified by full name and date of Chief Complaint Patient presents with Follow Up Pt here for spot on nose that comes and goes. He states that the spot with show up, bleed, scab over, and disappear. Repeatedly. He states this is ongoing for a couple of months now. documented in this encounter Plan of Treatment Upcoming Encounters Date Type Specialty Care Team Description 06/23/2023 Office Visit Allergy & Immunology James Choi MD [address] [place] [address] Health Maintenance Due Date Last Done Comments [...] as of this encounter Visit Diagnoses Diagnosis Facial telangiectasia- Primary Other and unspecified capillary diseases Flat wart Other specified viral warts documented in this encounter Care Teams Laborer [employer] Relationship Specialty Start Date End Date Vineet Alejandra MD [address] [place] [address] PCP - General Family Medicine 03/16/15 documented as of this encounter
--- NOTE | 2023-07-10 05:02 | Emergency Department Note ---
Impression & Plan Chest pain ED Provider Note CHIEF COMPLAINT: Chest pain HISTORY OF PRESENTING ILLNESS: This 47-year-old male patient presents to the emergency department for evaluation of chest pain that began at 2200 last night. The pain radiates into his neck. Also having shortness of breath with the symptoms. Feels like someone is sitting on his chest. He had to sleep sitting up because of the pressure in his chest. Woke up multiple times in the middle of the night because of the symptoms. States that it hurts to take a deep breath or to breathe. Has never had previous similar symptoms. Had a cardiac workup about 1-1.5 years ago that was unremarkable per patient. No known cardiac history other than history of costochondritis in the past. Denies family history of heart problems. He is not a smoker and does not vape. History of high cholesterol. Denies history of HTN or DM. Denies abdominal pain, nausea, or vomiting. History of chronic cough for years, but no new or changing cough. Denies fever or URI symptoms. The patient denies recent long car or plane rides or recent injury/trauma/surgery. Denies any personal history of blood clots or bleeding disorders. Denies any family history of blood clots or bleeding disorders. Denies any hormonal medication use. Denies any hemoptysis. Denies leg/calf pain or swelling. He took aspirin 324 mg at 4:15 am today. Denies any use of erectile disfunction medications. He is not on any blood thinners. REVIEW OF SYSTEMS: See HPI for pertinent positives and pertinent negatives. ALLERGIES: NKDA MEDICATIONS: Statin, sumatriptan prn, ibuprofen prn, omeprazole, azelastine nasal spray PAST MEDICAL HISTORY: High cholesterol, migraines, GERD, Allergic rhinitis. History of Hodgkin's Lymphoma s/p radiation - has been in remission for about 30 years per patient. History of splenectomy. Orthopedic surgeries. Staging laparotomy and lymph node biopsies. PHYSICAL EXAM: VITALS: Vitals are noted on the nurse's note and reviewed by myself. GENERAL: Non toxic, no acute distress, non-diaphoretic. SKIN: Capillary refill <2 sec. EYES: PERRLA. EOMI. Conjunctivae without injection, sclerae without icterus. NOSE: Patent without discharge. MOUTH: Mucous membranes moist. Uvula midline. Airway patent. NECK: Supple without nuchal rigidity. HEART: Regular rate and rhythm without murmurs gallops or rubs. LUNGS: Clear to auscultation bilaterally without wheezes, rales or rhonchi. No retractions or accessory muscle use. ABDOMEN: Positive bowel sounds x 4. Normal tympanic percussion. Soft, nontender. No masses or organomegaly. Joaquin sign negative. No guarding or rebound tenderness. No focal RLQ or LLQ tenderness. MUSCULOSKELETAL: No gross musculoskeletal defects. Bilateral calves are nontender to palpation. No edema of the lower extremities. Negative Homans' sign. Peripheral pulses 2+. NEURO: Patient was alert and oriented. No focal neurological deficits. DIFFERENTIAL DIAGNOSIS: Differential diagnosis includes angina, [place], pericarditis, myocarditis, aortic dissection, pleurisy, pneumothorax, PE, pneumonia, pneumomediastinum, esophagitis, esophageal spasm, GERD, perforated esophagus, perforated duodenal/gastric ulcer, pancreatitis, cholecystitis, costochondritis, musculoskeletal, bronchitis, URI, or others. ED COURSE AND MEDICAL DECISION MAKING: MONITOR: Continuous personnel monitor: Order was placed for continuous personnel monitor. Patient was placed on the personnel monitor and continuous pulse ox. Patient was noted to be in normal sinus rhythm at an initial rate of 94 bpm per my interpretation. EKG: EKG was interpreted by myself as normal sinus rhythm at 99 bpm with no acute ST or T wave changes. MEDICATIONS GIVEN: The patient already took aspirin 324 mg p.o. this morning. He was given sublingual nitro 0.4 mg, DuoNeb treatment, Toradol 10 mg IV, morphine 4 mg IV, and Zofran 4 mg IV. He was hydrated with 500 mL normal saline solution bolus. INTERPRETATION OF LABS: I interpreted the labs with full lab results as below in the lab section of this note. CBC without leukocytosis, anemia, or thrombocytopenia. Coags were normal. CMP without significant abnormalities. Lipase normal. Magnesium normal. BNP normal. High-sensitivity troponin normal. Repeat high-sensitivity troponin were still pending. D-dimer normal. TSH elevated at 5.250 with normal free T4 at 0.87. Urinalysis was normal. COVID, RSV, and influenza were negative. INTERPRETATION OF IMAGING: Chest x-ray per my interpretation showed scarring of the lungs, but no obvious acute cardiopulmonary etiology. Radiology report is still pending. MDM SUMMARY: I examined the patient. The patient started with central chest pain that radiates to his neck at 10 PM last night. He states that it feels like somebody is sitting on his chest. He also has shortness of breath and increased pain with taking a deep breath. He states that he had to sleep sitting up last night and woke up multiple times because of the pain. Denies a history of heart problems, but did have Hodgkin's lymphoma with radiation treatment about 30 years ago. The patient took aspirin 324 mg this morning. An IV lock was placed and labs were drawn. The patient was given sublingual nitroglycerin without any change in his symptoms. The patient was given a DuoNeb treatment without change of his symptoms. He was given Toradol 10 mg IV with no change in his symptoms. He was then given morphine 4 mg IV and Zofran 4 mg IV. EKG and initial high-sensitivity troponin were normal. Repeat troponin was still pending at the time of shift change. D-dimer was normal. BNP was normal. TSH was elevated at 5.25 with normal free T4 at 0.87. The patient states that he has a history of thyroid nodules in the past and he will need to follow-up with his family doctor for continued outpatient management of his elevated TSH. COVID, influenza, and RSV were negative. Chest x-ray per my interpretation showed scarring of the lungs, but no obvious acute cardiopulmonary etiology. Radiology report is still pending. Will obtain CT scan of the chest with IV contrast for further evaluation since the patient's symptoms are not improving after multiple treatments and due to his history of Hodgkin's lymphoma with radiation treatment. Due to change of shift, the patient's care was transferred to [facility]. The patient's CT scan of the chest as well as repeat troponin were still pending at the time of shift change. The patient's care was transferred in stable condition. 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 Family history of pancreatic cancer Diverticulitis Hodgkin's disease in remission Ganglion cyst of left foot Kidney cysts Heartburn Rhinitis, nonallergic Cough variant asthma Prediabetes Thyroid nodule Surgical History S/P repair of hydrocele s/p removal of hydrocele, left History of reduction surgery of left breast 1989 H/O exploratory laparotomy 1990 H/O lymph node biopsy 1990- deep right cervical area S/P splenectomy Family History Mother , at 67 yo Pancreatic cancer Brother Dyslipidemia Social History Smoking Status: Never smoker Tobacco Type: Cigarettes Do You Dip or Chew Tobacco: No; Hx Alcohol Use: Yes Alcohol type: wine Alcohol Intake Frequency: 2-3 x/Week Hx Substance Use: No Preferred Language: Guatemalan Communication Ability: Effective Clinical Trials Data Coordinator Required: No Beliefs That Will Affect Care: None Current Living Situation: Spouse Other Information That Helps Us Care for You: No Feels Safe at Home: Yes Safety Concerns: Feels Safe At This Time Assistive Devices: None Allergies Allergies Allergy/AdvReac Type Severity Reaction Status Date / Time No Known Allergies Allergy Verified 11/18/19 05:56 Home Meds Home Medications Medication Instructions Recorded Confirmed sumatriptan succinate 100 mg 100 mg PO DIRECTED PRN Migraine 11/04/19 07/10/23 tablet (Imitrex) Headache azelastine 137 mcg (0.1 %) nasal 2 spray intranasal DAILY 11/07/19 07/10/23 spray aerosol omeprazole 20 mg tablet,delayed 20 mg PO HS PRN Other 07/10/23 07/10/23 release rosuvastatin 10 mg tablet 10 mg PO DAILY 07/10/23 07/10/23 Results & Data (ED) Vital Signs Vital Signs - 24 hr 07/10/23 04:51 07/10/23 05:00 07/10/23 05:08 Temperature 36.0 C L Temperature Source Temporal Artery Scan Pulse Rate 109 H 94 H Pulse Rate [Apical] 92 H Pulse Rate from SpO2 Sensor 93 H Respiratory Rate 18 20 27 H Blood Pressure 148/92 H Blood Pressure [Left Arm] 121/78 Blood Pressure Mean 110 Blood Pressure Mean [Left Arm] 92 Pulse Oximetry 97 98 98 Oxygen Delivery Method Room Air Room Air Sepsis Recent Fever Within 48 Hours No Sepsis New/Unexplained Change in Mental Status No Sepsis Action Taken by Nursing No Action Required 07/10/23 05:09 07/10/23 05:10 07/10/23 05:16 Temperature Temperature Source Pulse Rate 92 H 99 H Pulse Rate [Apical] Pulse Rate from SpO2 Sensor 92 H Respiratory Rate 23 Blood Pressure Blood Pressure [Left Arm] Blood Pressure Mean Blood Pressure Mean [Left Arm] Pulse Oximetry 98 100 Oxygen Delivery Method Room Air Sepsis Recent Fever Within 48 Hours Sepsis New/Unexplained Change in Mental Status Sepsis Action Taken by Nursing 07/10/23 05:18 07/10/23 05:20 07/10/23 05:30 Temperature Temperature Source Pulse Rate 91 H 99 H Pulse Rate [Apical] Pulse Rate from SpO2 Sensor 93 H 100 H Respiratory Rate 27 H 19 Blood Pressure Blood Pressure [Left Arm] Blood Pressure Mean Blood Pressure Mean [Left Arm] Pulse Oximetry 96 97 95 Oxygen Delivery Method Room Air Sepsis Recent Fever Within 48 Hours Sepsis New/Unexplained Change in Mental Status Sepsis Action Taken by Nursing 07/10/23 05:40 07/10/23 05:50 07/10/23 05:54 Temperature Temperature Source Pulse Rate 85 92 H Pulse Rate [Apical] Pulse Rate from SpO2 Sensor 86 90 Respiratory Rate 22 26 H Blood Pressure 113/69 Blood Pressure [Left Arm] Blood Pressure Mean 79 Blood Pressure Mean [Left Arm] Pulse Oximetry 92 95 Oxygen Delivery Method Sepsis Recent Fever Within 48 Hours Sepsis New/Unexplained Change in Mental Status Sepsis Action Taken by Nursing 07/10/23 05:54 07/10/23 06:00 07/10/23 06:10 Temperature Temperature Source Pulse Rate 94 H 87 91 H Pulse Rate [Apical] Pulse Rate from SpO2 Sensor 89 90 91 H Respiratory Rate 16 26 H 20 Blood Pressure Blood Pressure [Left Arm] Blood Pressure Mean Blood Pressure Mean [Left Arm] Pulse Oximetry 96 96 97 Oxygen Delivery Method Sepsis Recent Fever Within 48 Hours Sepsis New/Unexplained Change in Mental Status Sepsis Action Taken by Nursing 07/10/23 06:20 07/10/23 06:30 07/10/23 06:38 Temperature Temperature Source Pulse Rate 100 H 91 H Pulse Rate [Apical] Pulse Rate from SpO2 Sensor 100 H 91 H Respiratory Rate 27 H 25 H Blood Pressure 131/84 Blood Pressure [Left Arm] Blood Pressure Mean 103 Blood Pressure Mean [Left Arm] Pulse Oximetry 96 96 Oxygen Delivery Method Sepsis Recent Fever Within 48 Hours Sepsis New/Unexplained Change in Mental Status Sepsis Action Taken by Nursing 07/10/23 06:38 07/10/23 06:40 07/10/23 07:00 Temperature Temperature Source Pulse Rate 88 82 Pulse Rate [Apical] Pulse Rate from SpO2 Sensor 89 84 Respiratory Rate 21 19 Blood Pressure 99/78 L Blood Pressure [Left Arm] Blood Pressure Mean 86 Blood Pressure Mean [Left Arm] Pulse Oximetry 96 96 Oxygen Delivery Method Sepsis Recent Fever Within 48 Hours Sepsis New/Unexplained Change in Mental Status Sepsis Action Taken by Nursing 07/10/23 07:00 07/10/23 07:10 07/10/23 07:20 Temperature Temperature Source Pulse Rate 95 H 97 H 102 H Pulse Rate [Apical] Pulse Rate from SpO2 Sensor 93 H 98 H 100 H Respiratory Rate 18 25 H 27 H Blood Pressure Blood Pressure [Left Arm] Blood Pressure Mean Blood Pressure Mean [Left Arm] Pulse Oximetry 96 95 97 Oxygen Delivery Method Sepsis Recent Fever Within 48 Hours Sepsis New/Unexplained Change in Mental Status Sepsis Action Taken by Nursing 07/10/23 07:30 07/10/23 07:30 07/10/23 07:40 Temperature Temperature Source Pulse Rate 95 H 102 H Pulse Rate [Apical] Pulse Rate from SpO2 Sensor 96 H 101 H Respiratory Rate 23 23 Blood Pressure 116/75 Blood Pressure [Left Arm] Blood Pressure Mean 83 Blood Pressure Mean [Left Arm] Pulse Oximetry 97 96 Oxygen Delivery Method Sepsis Recent Fever Within 48 Hours Sepsis New/Unexplained Change in Mental Status Sepsis Action Taken by Nursing 07/10/23 07:50 07/10/23 08:00 07/10/23 08:00 Temperature Temperature Source Pulse Rate 98 H 102 H Pulse Rate [Apical] Pulse Rate from SpO2 Sensor 99 H 101 H Respiratory Rate 19 20 Blood Pressure 115/74 Blood Pressure [Left Arm] Blood Pressure Mean 85 Blood Pressure Mean [Left Arm] Pulse Oximetry 98 99 Oxygen Delivery Method Sepsis Recent Fever Within 48 Hours Sepsis New/Unexplained Change in Mental Status Sepsis Action Taken by Nursing 07/10/23 08:44 07/10/23 09:00 07/10/23 09:25 Temperature Temperature Source Pulse Rate 113 H 105 H 103 H Pulse Rate [Apical] Pulse Rate from SpO2 Sensor 112 H 104 H Respiratory Rate 32 H 22 Blood Pressure Blood Pressure [Left Arm] Blood Pressure Mean Blood Pressure Mean [Left Arm] Pulse Oximetry 100 97 Oxygen Delivery Method Sepsis Recent Fever Within 48 Hours Sepsis New/Unexplained Change in Mental Status Sepsis Action Taken by Nursing 07/10/23 09:30 07/10/23 09:57 07/10/23 09:57 Temperature Temperature Source Pulse Rate 107 H 112 H Pulse Rate [Apical] Pulse Rate from SpO2 Sensor 108 H 112 H Respiratory Rate 26 H 36 H Blood Pressure 140/84 Blood Pressure [Left Arm] Blood Pressure Mean 95 Blood Pressure Mean [Left Arm] Pulse Oximetry 96 97 Oxygen Delivery Method Sepsis Recent Fever Within 48 Hours Sepsis New/Unexplained Change in Mental Status Sepsis Action Taken by Nursing 07/10/23 10:00 07/10/23 10:00 07/10/23 10:30 Temperature Temperature Source Pulse Rate 115 H Pulse Rate [Apical] Pulse Rate from SpO2 Sensor 115 H Respiratory Rate 34 H Blood Pressure 134/85 131/86 Blood Pressure [Left Arm] Blood Pressure Mean 112 97 Blood Pressure Mean [Left Arm] Pulse Oximetry 96 Oxygen Delivery Method Sepsis Recent Fever Within 48 Hours Sepsis New/Unexplained Change in Mental Status Sepsis Action Taken by Nursing 07/10/23 10:30 Temperature Temperature Source Pulse Rate 119 H Pulse Rate [Apical] Pulse Rate from SpO2 Sensor 115 H Respiratory Rate 29 H Blood Pressure Blood Pressure [Left Arm] Blood Pressure Mean Blood Pressure Mean [Left Arm] Pulse Oximetry 96 Oxygen Delivery Method Sepsis Recent Fever Within 48 Hours Sepsis New/Unexplained Change in Mental Status Sepsis Action Taken by Nursing Laboratory Data 07/10/23 05:03 07/10/23 05:03 Lab Results 07/10/23 07/10/23 07/10/23 Range/Units 05:03 05:21 05:50 WBC 10.39 (4.8-10.8) K/ul RBC 5.11 (4.70-6.10) M/uL Hgb 15.5 (14.0-18.0) g/dl Hct 47.8 (42.0-52.0) % MCV 93.5 (80.0-100.0) fL MCH 30.3 (25.0-34.0) pg MCHC 32.4 (32.0-36.0) g/dL RDW Std Deviation 46.4 H (36.4-46.3) fL RDW Coeff of Sheldon 13.6 (11.5-14.5) % Plt Count 355 (130-400) K/uL MPV 11.0 (9.4-12.4) fL Immature Gran % (Auto) 0.3 % Neut % (Auto) 60.2 % Lymph % (Auto) 27.5 % [place] % (Auto) 10.3 % Eos % (Auto) 1.2 % Baso % (Auto) 0.5 % Neut # (Auto) 6.26 (1.40-6.50) K/uL Lymph # (Auto) 2.86 (1.20-3.40) K/uL [place] # (Auto) 1.07 H (0.11-0.59) K/uL Eos # (Auto) 0.12 (0.00-0.50) K/uL Baso # (Auto) 0.05 (0.00-0.20) K/uL Immature Gran # (Auto) 0.03 (0.01-0.20) K/uL ESR 7 (0-15) mm/hr PT 11.5 (9.0-12.0) Seconds INR 1.1 (0.9-1.1) APTT 28 (21-31) Seconds PTT Ratio 1.0 D-Dimer < 190 (0-500) ug/L FEU Sodium 141 (136-145) mmol/L Potassium 4.3 (3.5-5.1) mmol/L Chloride 108 H (98-107) mmol/L Carbon Dioxide 24 (21-32) mmol/L Anion Gap 9 (3-11) BUN 15 (6-23) mg/dl Creatinine 1.05 (0.6-1.4) mg/dl Est Cr Clr Drug Dosing 87.9 ml/min Est GFR ( Amer) 96.1 ml/min Est GFR (Non-Af Amer) 83.0 ml/min BUN/Creatinine Ratio 14.3 (10-20) Glucose 102 H (70-99(Fasting)) mg/dl Calcium 9.5 (8.6-10.3) mg/dl Magnesium 2.2 (1.7-2.4) mg/dl Total Bilirubin 0.6 (0.2-1.0) mg/dl AST 21 (13-39) U/L ALT 21 (7-52) U/L Alkaline Phosphatase 74 (34-104) U/L Troponin I High Sens 2.4 (0-20) pg/ml C-Reactive Protein < 0.50 (0-0.5) mg/dl B-Natriuretic Peptide 21 (0-100) pg/ml Total Protein 7.8 (6.0-8.3) gm/dl Albumin 4.7 (3.4-5.0) gm/dl Globulin 3.1 (2.5-4.0) gm/dl Albumin/Globulin Ratio 1.5 (0.9-2) Lipase 17 (11-82) U/L TSH 5.250 H (0.300-4.500) uIu/ml Free T4 0.87 (0.61-1.60) ng/dl Urine Color Yellow Urine Appearance Clear (Clear) Urine pH 6.0 (4.5-7.5) Ur Specific [place] >= 1.030 (1.000-1.030) Urine Protein Negative (Negative) Urine Glucose (UA) Negative (Negative) Urine Ketones Negative (Negative) Urine Blood Negative (Negative) Urine Nitrite Negative (Negative) Urine Bilirubin Negative (Negative) Urine Urobilinogen Negative (Negative) Ur Leukocyte Esterase Negative (Negative) Lyme Disease IgG Ab Positive A (Negative) Lyme Disease IgM Ab Negative (Negative) SARS-CoV-2 (PCR) NEGATIVE (Negative) Influenza Type A (PCR) Negative (Neg) Influenza Type B (PCR) Negative (Neg) RSV (RT-PCR) Negative (Neg) 07/10/23 Range/Units 07:03 WBC (4.8-10.8) K/ul RBC (4.70-6.10) M/uL Hgb (14.0-18.0) g/dl Hct (42.0-52.0) % MCV (80.0-100.0) fL MCH (25.0-34.0) pg MCHC (32.0-36.0) g/dL RDW Std Deviation (36.4-46.3) fL RDW Coeff of Sheldon (11.5-14.5) % Plt Count (130-400) K/uL MPV (9.4-12.4) fL Immature Gran % (Auto) % Neut % (Auto) % Lymph % (Auto) % [place] % (Auto) % Eos % (Auto) % Baso % (Auto) % Neut # (Auto) (1.40-6.50) K/uL Lymph # (Auto) (1.20-3.40) K/uL [place] # (Auto) (0.11-0.59) K/uL Eos # (Auto) (0.00-0.50) K/uL Baso # (Auto) (0.00-0.20) K/uL Immature Gran # (Auto) (0.01-0.20) K/uL ESR (0-15) mm/hr PT (9.0-12.0) Seconds INR (0.9-1.1) APTT (21-31) Seconds PTT Ratio D-Dimer (0-500) ug/L FEU Sodium (136-145) mmol/L Potassium (3.5-5.1) mmol/L Chloride (98-107) mmol/L Carbon Dioxide (21-32) mmol/L Anion Gap (3-11) BUN (6-23) mg/dl Creatinine (0.6-1.4) mg/dl Est Cr Clr Drug Dosing ml/min Est GFR ( Amer) ml/min Est GFR (Non-Af Amer) ml/min BUN/Creatinine Ratio (10-20) Glucose (70-99(Fasting)) mg/dl Calcium (8.6-10.3) mg/dl Magnesium (1.7-2.4) mg/dl Total Bilirubin (0.2-1.0) mg/dl AST (13-39) U/L ALT (7-52) U/L Alkaline Phosphatase (34-104) U/L Troponin I High Sens < 2.3 (0-20) pg/ml C-Reactive Protein (0-0.5) mg/dl B-Natriuretic Peptide (0-100) pg/ml Total Protein (6.0-8.3) gm/dl Albumin (3.4-5.0) gm/dl Globulin (2.5-4.0) gm/dl Albumin/Globulin Ratio (0.9-2) Lipase (11-82) U/L TSH (0.300-4.500) uIu/ml Free T4 (0.61-1.60) ng/dl Urine Color Urine Appearance (Clear) Urine pH (4.5-7.5) Ur Specific [place] (1.000-1.030) Urine Protein (Negative) Urine Glucose (UA) (Negative) Urine Ketones (Negative) Urine Blood (Negative) Urine Nitrite (Negative) Urine Bilirubin (Negative) Urine Urobilinogen (Negative) Ur Leukocyte Esterase (Negative) Lyme Disease IgG Ab (Negative) Lyme Disease IgM Ab (Negative) SARS-CoV-2 (PCR) (Negative) Influenza Type A (PCR) (Neg) Influenza Type B (PCR) (Neg) RSV (RT-PCR) (Neg) Administered Medications Enoxaparin Sodium (Enoxaparin Inj 40 Mg/0.4 Ml Syr) 40 mg SQ Q24H LEIDY Stop: 08/09/23 14:14 Last Admin: 07/10/23 14:16 Dose: Not Given Documented By: MG Ibuprofen (Ibuprofen 800 Mg Tab) 800 mg PO TID LEIDY Stop: 08/09/23 13:59 Last Admin: 07/10/23 20:07 Dose: 800 mg Documented By: Admin: 07/10/23 13:30 Dose: 800 mg Documented By: MG Nitroglycerin (Nitroglycerin Sl 0.4 Mg/Tab Tab) 0.4 mg SL Q5M PRN PRN Reason: Chest Pain Stop: 08/09/23 05:14 Last Admin: 07/10/23 05:26 Dose: 0.4 mg Documented By: BRIDGETTE Pantoprazole Sodium (Pantoprazole 40 Mg Tab) 40 mg PO HS LEIDY Stop: 08/09/23 20:59 Last Admin: 07/10/23 20:07 Dose: 40 mg Documented By: GABRIELA Discontinued Medications Albuterol (Albut/Ipratrop 3mg/0.5mg Neb 3 Ml Vial) 3 ml NEB NOW STA; Protocol Stop: 07/10/23 06:23 Last Admin: 07/10/23 06:34 Dose: 3 ml Documented By: BRIDGETTE Colchicine (Colchicine 0.6 Mg Tab) 1.2 mg PO NOW ONE Stop: 07/10/23 11:33 Last Admin: 07/10/23 13:30 Dose: 1.2 mg Documented By: Sodium Chloride (Nss) 500 mls @ 999 mls/hr IV .Q31M STA Stop: 07/10/23 05:45 Last Infusion: 07/10/23 06:34 Dose: Infused Documented By: Admin: 07/10/23 05:26 Dose: 999 mls/hr Documented By: BRIDGETTE Ioversol (Optiray 320 500ml) 90 ml IV ONCE ONE Stop: 07/10/23 08:39 Last Admin: 07/10/23 08:39 Dose: 90 ml Documented By: SYLVAIN Ketorolac Tromethamine (Ketorolac Tromethamine 15 Mg/Ml Vial) 10 mg IV NOW ONE Stop: 07/10/23 06:23 Last Admin: 07/10/23 06:34 Dose: 10 mg Documented By: BRIDGETTE Methylprednisolone (Methylprednisolone 125 Mg/2 Ml Vial) 60 mg IV NOW STA Stop: 07/10/23 10:08 Last Admin: 07/10/23 10:46 Dose: 60 mg Documented By: ROSEANN Metoprolol Tartrate (Metoprolol Tartrate 25 Mg Tab) 25 mg PO NOW ONE Stop: 07/10/23 14:01 Last Admin: 07/10/23 14:03 Dose: 25 mg Documented By: Morphine Sulfate (Morphine Sulfate 4 Mg/Ml 1 Ml Carp\Vial) 4 mg IV NOW STA Stop: 07/10/23 07:34 Last Admin: 07/10/23 08:04 Dose: Not Given Documented By: ROSEANN Morphine Sulfate (Morphine Sulfate 2 Mg/Ml Carp) 2 mg IV NOW STA Stop: 07/10/23 09:37 Last Admin: 07/10/23 09:58 Dose: 2 mg Documented By: KIRSTIN Ondansetron HCl (Ondansetron Inj 2 Mg/Ml 2 Ml Vial) 4 mg IV NOW STA Stop: 07/10/23 07:34 Last Admin: 07/10/23 08:04 Dose: Not Given Documented By: ROSEANN Ondansetron HCl (Ondansetron Inj 2 Mg/Ml 2 Ml Vial) Confirm Administered Dose 4 mg .ROUTE .STK-MED ONE Stop: 07/10/23 09:57 Last Admin: 07/10/23 09:57 Dose: 4 mg Documented By: KIRSTIN Imaging Data Radiologist's Impression: Chest X-Ray 07/10/23 05:15 XR chest 1V portable HISTORY: 47 years-old Male Chest pain, nonspecific acute chest pain COMPARISON: None TECHNIQUE: AP view of the chest FINDINGS: Cardiomediastinal and hilar silhouettes are within normal limits. No pneumothorax, pleural effusion or pulmonary edema. Mild nonspecific interstitial coarsening with bibasilar atelectasis. Bones appear grossly intact. IMPRESSION: Mild bibasilar atelectasis without acute process of the chest. ACT 112: Negative or not required by law. The above report was generated using voice recognition software. It may contain grammatical, syntax or spelling errors. Electronically signed by: Ed Ignacio M.D. 07/10/2023 9:[address] 07/10/23 07:[address] WITH CONTRAST CT DOSE: 536.76 mGy.cm HISTORY: Acute chest pain or shortness of breath Chest pain, sob TECHNIQUE: Multiaxial CT images of the chest were performed following the IV administration of 90 cc of Optiray. A dose lowering technique was utilized adhering to the principles of ALARA. COMPARISON: Chest radiograph of same day FINDINGS: Multinodular thyroid with nodules measuring up to 11 mm on the left. There is no lymphadenopathy. Heart is normal in size. No pericardial effusion. Unremarkable thoracic aorta opacified pulmonary artery. No pneumothorax, pleural effusion or overt pulmonary edema. Bibasilar atelectasis. There is mild biapical pleural parenchymal scarring with areas of traction bronchiectasis. No suspicious pulmonary nodules or masses. 4 mm groundglass nodule of the right middle lobe on image 83. There are a few scattered benign-appearing fissural nodules measuring 3-4 mm. 4 mm solid nodule in the right lower lobe on image 111. Central airways are patent. Atrophy of the superior pole left kidney with cortical thinning. 1.4 cm cyst of the superior pole left kidney. There are a few scattered hepatic cysts. Unremarkable soft tissues. Upper thoracic levoscoliosis. No acute fracture. IMPRESSION: 1. No acute process of the chest. 2. No pleural effusion or lymphadenopathy. 3. Multinodular thyroid. 4. There are a few scattered low suspicion pulmonary nodules measuring up to 4 mm. Please refer to below summary of Fleischner criteria recommendations for follow- up of incidental CT nodules (Ariana Miranda, Guidelines for management of small pulmonary nodules detected on CT scans: A statement from the Fleischner Society, Radiology 237: [phone].) SOLID NODULES Multiple nodules size: <6 mm * Low risk patients: no routine follow-up * high risk patients: optional CT at 12 months Note: newly detected indeterminate nodule in persons 35 years of age or older. * Low risk patients: minimal or absent history of smoking and/or other known risk factors * high risk patients: history of smoking or of other known risk factors (e.g. first degree relative with lung cancer, or exposure to asbestos, radon, uranium) * if a nodule up to 8 mm is partly solid or is ground glass further follow-up is required after 24 months to exclude possible slow growing adenocarcinoma (BIBI) SUBSOLID NODULES Solitary pure ground-glass nodule * nodule size <6 mm - no CT follow-up required * nodule size >=6 mm - follow-up CT at 6-12 months, then every 2 years until 5 years The above report was generated using voice recognition software. It may contain grammatical, syntax or spelling errors. ACT 112: Negative or not required by law. Electronically signed by: Ed Ignacio M.D. 07/10/2023 9:11 AM Discharge Plan Visit Data Chief Complaint: Chest Pain Stated Complaint: CHEST PAIN ED Provider: Sarah Bartlett ED Midlevel Provider: Jermain Santana Discharge Problem: Chest pain Patient Disposition: Admitted As Inpatient Discharge Instructions Interventions: ED Discharge Assessment Last Done: 07/10/23 12:19
[2023-07-10] MEDS: SODIUM CHLORIDE 0.9% 500 ML IV STA (05:26)
[2023-07-10] MEDS: NITROGLYCERIN SL 0.4 MG/TAB TAB SL PRN (05:26)
[2023-07-10 05:35] LABS: Basophils # (auto) 0.05 K/uL (0.00-0.20); Basophils % (auto) 0.5 %; Eosinophils # (auto) 0.12 K/uL (0.00-0.50); Eosinophils % (auto) 1.2 %; Hematocrit (blood only) 47.8 % (42.0-52.0); Hemoglobin 15.5 g/dl (14.0-18.0); Immature Granulocytes # (auto) 0.03 K/uL (0.01-0.20); Immature Granulocytes % (auto) 0.3 %; Lymphocytes # (auto) 2.86 K/uL (1.20-3.40); Lymphocytes % (auto) 27.5 %; Mean Corpuscular Hemoglobin 30.3 pg (25.0-34.0); Mean Corpuscular Hgb Conc 32.4 g/dL (32.0-36.0); Mean Corpuscular Volume 93.5 fL (80.0-100.0); Monocytes # (auto) 1.07 K/uL (0.11-0.59); Monocytes % (auto) 10.3 %; Neutrophils # (auto) 6.26 K/uL (1.40-6.50); Neutrophils % (auto) 60.2 %; Platelet Count 355 K/uL (130-400); RDW Coefficient of Variation 13.6 % (11.5-14.5); RDW Standard Deviation 46.4 fL (36.4-46.3); Red Blood Count 5.11 M/uL (4.70-6.10); White Blood Count 10.39 K/ul (4.8-10.8)
[2023-07-10 05:38] LABS: Appearance Urine Clear (Clear); Bilirubin Urine Negative (Negative); Blood Urine Negative (Negative); Color Urine Yellow; Glucose Urine UA Negative (Negative); Ketones Urine Negative (Negative); Leukocyte Esterase Urine Negative (Negative); Nitrite Urine Negative (Negative); Protein Urine Negative (Negative); Specific Gravity Urine >= 1.030 (1.000-1.030); Urobilinogen Urine Negative (Negative)
[2023-07-10 05:49] LABS: Alanine Aminotransferase 21 U/L (7-52); Albumin Globulin Ratio 1.5 (0.9-2); Albumin Level 4.7 gm/dl (3.4-5.0); Alkaline Phosphatase 74 U/L (34-104); Anion Gap 9 (3-11); Aspartate Aminotransferase 21 U/L (13-39); BUN Creatinine Ratio 14.3 (10-20); Bilirubin,Total 0.6 mg/dl (0.2-1.0); Blood Urea Nitrogen 15 mg/dl (6-23); Calcium 9.5 mg/dl (8.6-10.3); Carbon Dioxide 24 mmol/L (21-32); Chloride 108 mmol/L (98-107); Creatinine Clr Calc Pharmacy 87.9 ml/min; Est GFR (African American) 96.1 ml/min; Globulin 3.1 gm/dl (2.5-4.0); Glucose 102 mg/dl (70-99(Fasting)); Lipase 17 U/L (11-82); Magnesium 2.2 mg/dl (1.7-2.4); Potassium 4.3 mmol/L (3.5-5.1); Sodium 141 mmol/L (136-145); Total Protein 7.8 gm/dl (6.0-8.3)
[2023-07-10 05:54] LABS: Troponin I High Sensitivity 2.4 pg/ml (0-20)
[2023-07-10 06:09] LABS: D Dimer < 190 ug/L FEU (0-500); INR 1.1 (0.9-1.1); Partial Thromboplastin Time 28 Seconds (21-31); Prothrombin Time 11.5 Seconds (9.0-12.0)
[2023-07-10] MEDS: KETOROLAC TROMETHAMINE 15 MG/ML VIAL IV ONE (06:34)
[2023-07-10] MEDS: ALBUT/IPRATROP 3MG/0.5MG NEB 3 ML VIAL NEB STA (06:34)
[2023-07-10 06:39] LABS: T4 Free Thyroxine 0.87 ng/dl (0.61-1.60)
[2023-07-10 06:40] LABS: Influenza A virus by PCR Negative (Neg); Influenza B virus by PCR Negative (Neg); RSV by PCR Negative (Neg); SARS CoV2 RNA(COVID-19) Ceph NEGATIVE (Negative)
[2023-07-10] MEDS: MoRPHine SULFATE 4 MG/ML 1 ML CARP\\VIAL IV STA (08:04)
[2023-07-10] MEDS: ONDANSETRON INJ 2 MG/ML 2 ML VIAL IV STA (08:04)
--- NOTE | 2023-07-10 08:21 | Emergency Department Note ---
Impression & Plan Chest pain Observation with further workup. [employer] [facility] has been consulted. ED Provider Note This 47-year-old male was signed out to me by Andrew LEWIS. Please see her dictation for full history and physical. CT scan imaging of the chest and second troponin were pending at that time. The patient continued to have significant chest pain that he described deep under the sternum. He was given morphine 2 mg IV. Chest pain persisted. CT images were unremarkable. His second troponin was also normal at less than 2.3. The patient was reexamined. He continued to have complaints of chest pain. I could not make the chest pain worse with palpation of the sterno-costal junction or with motion of the upper extremities. The patient was then given Solu-Medrol 60 mg IV in case of costochondritis. Because of his persisting symptoms, I discussed admission and further cardiac workup with the patient. Possibility of pericarditis exist. Through shared decision-making, he was in agreement. [employer] [facility] [facility] was contacted and I discussed the case with Dr. De Dios. She was in agreement for observation and further cardiac workup. Please see her dictation for final management. Care plan was also discussed with Dr. Emery. 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 Family history of pancreatic cancer Diverticulitis Hodgkin's disease in remission Ganglion cyst of left foot Kidney cysts Heartburn Rhinitis, nonallergic Cough variant asthma Prediabetes Thyroid nodule Surgical History S/P repair of hydrocele s/p removal of hydrocele, left History of reduction surgery of left breast 1989 H/O exploratory laparotomy 1990 H/O lymph node biopsy 1990- deep right cervical area S/P splenectomy Family History Mother , at 67 yo Pancreatic cancer Brother Dyslipidemia Social History Smoking Status: Never smoker Tobacco Type: Cigarettes Do You Dip or Chew Tobacco: No; Hx Alcohol Use: Yes Alcohol type: wine Alcohol Intake Frequency: 2-3 x/Week Hx Substance Use: No Preferred Language: [place] Zeal[place] Communication Ability: Effective Field Director Required: No Beliefs That Will Affect Care: None Current Living Situation: Spouse Other Information That Helps Us Care for You: No Feels Safe at Home: Yes Safety Concerns: Feels Safe At This Time Assistive Devices: None Allergies Allergies Allergy/AdvReac Type Severity Reaction Status Date / Time No Known Allergies Allergy Verified 11/18/19 05:56 Home Meds Home Medications Medication Instructions Recorded Confirmed sumatriptan succinate 100 mg 100 mg PO DIRECTED PRN Migraine 11/04/19 07/10/23 tablet (Imitrex) Headache azelastine 137 mcg (0.1 %) nasal 2 spray intranasal DAILY 11/07/19 07/10/23 spray aerosol omeprazole 20 mg tablet,delayed 20 mg PO HS PRN Other 07/10/23 07/10/23 release rosuvastatin 10 mg tablet 10 mg PO DAILY 07/10/23 07/10/23 Results & Data (ED) Vital Signs Vital Signs - 24 hr 07/10/23 04:51 07/10/23 05:00 07/10/23 05:08 Temperature 36.0 C L Temperature Source Temporal Artery Scan Pulse Rate 109 H 94 H Pulse Rate [Apical] 92 H Pulse Rate from SpO2 Sensor 93 H Respiratory Rate 18 20 27 H Blood Pressure 148/92 H Blood Pressure [Left Arm] 121/78 Blood Pressure Mean 110 Blood Pressure Mean [Left Arm] 92 Pulse Oximetry 97 98 98 Oxygen Delivery Method Room Air Room Air Sepsis Recent Fever Within 48 Hours No Sepsis New/Unexplained Change in Mental Status No Sepsis Action Taken by Nursing No Action Required 07/10/23 05:09 07/10/23 05:10 07/10/23 05:16 Temperature Temperature Source Pulse Rate 92 H 99 H Pulse Rate [Apical] Pulse Rate from SpO2 Sensor 92 H Respiratory Rate 23 Blood Pressure Blood Pressure [Left Arm] Blood Pressure Mean Blood Pressure Mean [Left Arm] Pulse Oximetry 98 100 Oxygen Delivery Method Room Air Sepsis Recent Fever Within 48 Hours Sepsis New/Unexplained Change in Mental Status Sepsis Action Taken by Nursing 07/10/23 05:18 07/10/23 05:20 07/10/23 05:30 Temperature Temperature Source Pulse Rate 91 H 99 H Pulse Rate [Apical] Pulse Rate from SpO2 Sensor 93 H 100 H Respiratory Rate 27 H 19 Blood Pressure Blood Pressure [Left Arm] Blood Pressure Mean Blood Pressure Mean [Left Arm] Pulse Oximetry 96 97 95 Oxygen Delivery Method Room Air Sepsis Recent Fever Within 48 Hours Sepsis New/Unexplained Change in Mental Status Sepsis Action Taken by Nursing 07/10/23 05:40 07/10/23 05:50 07/10/23 05:54 Temperature Temperature Source Pulse Rate 85 92 H Pulse Rate [Apical] Pulse Rate from SpO2 Sensor 86 90 Respiratory Rate 22 26 H Blood Pressure 113/69 Blood Pressure [Left Arm] Blood Pressure Mean 79 Blood Pressure Mean [Left Arm] Pulse Oximetry 92 95 Oxygen Delivery Method Sepsis Recent Fever Within 48 Hours Sepsis New/Unexplained Change in Mental Status Sepsis Action Taken by Nursing 07/10/23 05:54 07/10/23 06:00 07/10/23 06:10 Temperature Temperature Source Pulse Rate 94 H 87 91 H Pulse Rate [Apical] Pulse Rate from SpO2 Sensor 89 90 91 H Respiratory Rate 16 26 H 20 Blood Pressure Blood Pressure [Left Arm] Blood Pressure Mean Blood Pressure Mean [Left Arm] Pulse Oximetry 96 96 97 Oxygen Delivery Method Sepsis Recent Fever Within 48 Hours Sepsis New/Unexplained Change in Mental Status Sepsis Action Taken by Nursing 07/10/23 06:20 07/10/23 06:30 07/10/23 06:38 Temperature Temperature Source Pulse Rate 100 H 91 H Pulse Rate [Apical] Pulse Rate from SpO2 Sensor 100 H 91 H Respiratory Rate 27 H 25 H Blood Pressure 131/84 Blood Pressure [Left Arm] Blood Pressure Mean 103 Blood Pressure Mean [Left Arm] Pulse Oximetry 96 96 Oxygen Delivery Method Sepsis Recent Fever Within 48 Hours Sepsis New/Unexplained Change in Mental Status Sepsis Action Taken by Nursing 07/10/23 06:38 07/10/23 06:40 07/10/23 07:00 Temperature Temperature Source Pulse Rate 88 82 Pulse Rate [Apical] Pulse Rate from SpO2 Sensor 89 84 Respiratory Rate 21 19 Blood Pressure 99/78 L Blood Pressure [Left Arm] Blood Pressure Mean 86 Blood Pressure Mean [Left Arm] Pulse Oximetry 96 96 Oxygen Delivery Method Sepsis Recent Fever Within 48 Hours Sepsis New/Unexplained Change in Mental Status Sepsis Action Taken by Nursing 07/10/23 07:00 07/10/23 07:10 07/10/23 07:20 Temperature Temperature Source Pulse Rate 95 H 97 H 102 H Pulse Rate [Apical] Pulse Rate from SpO2 Sensor 93 H 98 H 100 H Respiratory Rate 18 25 H 27 H Blood Pressure Blood Pressure [Left Arm] Blood Pressure Mean Blood Pressure Mean [Left Arm] Pulse Oximetry 96 95 97 Oxygen Delivery Method Sepsis Recent Fever Within 48 Hours Sepsis New/Unexplained Change in Mental Status Sepsis Action Taken by Nursing 07/10/23 07:30 07/10/23 07:30 07/10/23 07:40 Temperature Temperature Source Pulse Rate 95 H 102 H Pulse Rate [Apical] Pulse Rate from SpO2 Sensor 96 H 101 H Respiratory Rate 23 23 Blood Pressure 116/75 Blood Pressure [Left Arm] Blood Pressure Mean 83 Blood Pressure Mean [Left Arm] Pulse Oximetry 97 96 Oxygen Delivery Method Sepsis Recent Fever Within 48 Hours Sepsis New/Unexplained Change in Mental Status Sepsis Action Taken by Nursing 07/10/23 07:50 07/10/23 08:00 07/10/23 08:00 Temperature Temperature Source Pulse Rate 98 H 102 H Pulse Rate [Apical] Pulse Rate from SpO2 Sensor 99 H 101 H Respiratory Rate 19 20 Blood Pressure 115/74 Blood Pressure [Left Arm] Blood Pressure Mean 85 Blood Pressure Mean [Left Arm] Pulse Oximetry 98 99 Oxygen Delivery Method Sepsis Recent Fever Within 48 Hours Sepsis New/Unexplained Change in Mental Status Sepsis Action Taken by Nursing 07/10/23 08:44 07/10/23 09:00 07/10/23 09:25 Temperature Temperature Source Pulse Rate 113 H 105 H 103 H Pulse Rate [Apical] Pulse Rate from SpO2 Sensor 112 H 104 H Respiratory Rate 32 H 22 Blood Pressure Blood Pressure [Left Arm] Blood Pressure Mean Blood Pressure Mean [Left Arm] Pulse Oximetry 100 97 Oxygen Delivery Method Sepsis Recent Fever Within 48 Hours Sepsis New/Unexplained Change in Mental Status Sepsis Action Taken by Nursing 07/10/23 09:30 07/10/23 09:57 07/10/23 09:57 Temperature Temperature Source Pulse Rate 107 H 112 H Pulse Rate [Apical] Pulse Rate from SpO2 Sensor 108 H 112 H Respiratory Rate 26 H 36 H Blood Pressure 140/84 Blood Pressure [Left Arm] Blood Pressure Mean 95 Blood Pressure Mean [Left Arm] Pulse Oximetry 96 97 Oxygen Delivery Method Sepsis Recent Fever Within 48 Hours Sepsis New/Unexplained Change in Mental Status Sepsis Action Taken by Nursing 07/10/23 10:00 07/10/23 10:00 07/10/23 10:30 Temperature Temperature Source Pulse Rate 115 H Pulse Rate [Apical] Pulse Rate from SpO2 Sensor 115 H Respiratory Rate 34 H Blood Pressure 134/85 131/86 Blood Pressure [Left Arm] Blood Pressure Mean 112 97 Blood Pressure Mean [Left Arm] Pulse Oximetry 96 Oxygen Delivery Method Sepsis Recent Fever Within 48 Hours Sepsis New/Unexplained Change in Mental Status Sepsis Action Taken by Nursing 07/10/23 10:30 Temperature Temperature Source Pulse Rate 119 H Pulse Rate [Apical] Pulse Rate from SpO2 Sensor 115 H Respiratory Rate 29 H Blood Pressure Blood Pressure [Left Arm] Blood Pressure Mean Blood Pressure Mean [Left Arm] Pulse Oximetry 96 Oxygen Delivery Method Sepsis Recent Fever Within 48 Hours Sepsis New/Unexplained Change in Mental Status Sepsis Action Taken by Nursing Laboratory Data CBC obtained today shows a normal white count. Normal H&H. Normal platelets. Normal differential. Sed rate normal at 7. INR is normal at 1.1. D-dimer is normal at less than 190. Renal panel BUN and creatinine are normal. LFTs are also normal. C-reactive protein is normal at less than 0.5. BNP is normal at 21. Lipase is normal. TSH is elevated at 5.25. Free T4 is normal however. Urine is normal. Lyme disease IgG is positive. IgM is negative. Nasal swab was negative for COVID, influenza a and B, and RSV. 07/10/23 05:03 07/10/23 05:03 Lab Results 07/10/23 07/10/23 07/10/23 Range/Units 05:03 05:21 05:50 WBC 10.39 (4.8-10.8) K/ul RBC 5.11 (4.70-6.10) M/uL Hgb 15.5 (14.0-18.0) g/dl Hct 47.8 (42.0-52.0) % MCV 93.5 (80.0-100.0) fL MCH 30.3 (25.0-34.0) pg MCHC 32.4 (32.0-36.0) g/dL RDW Std Deviation 46.4 H (36.4-46.3) fL RDW Coeff of Sheldon 13.6 (11.5-14.5) % Plt Count 355 (130-400) K/uL MPV 11.0 (9.4-12.4) fL Immature Gran % (Auto) 0.3 % Neut % (Auto) 60.2 % Lymph % (Auto) 27.5 % Dixie % (Auto) 10.3 % Eos % (Auto) 1.2 % Baso % (Auto) 0.5 % Neut # (Auto) 6.26 (1.40-6.50) K/uL Lymph # (Auto) 2.86 (1.20-3.40) K/uL Dixie # (Auto) 1.07 H (0.11-0.59) K/uL Eos # (Auto) 0.12 (0.00-0.50) K/uL Baso # (Auto) 0.05 (0.00-0.20) K/uL Immature Gran # (Auto) 0.03 (0.01-0.20) K/uL ESR 7 (0-15) mm/hr PT 11.5 (9.0-12.0) Seconds INR 1.1 (0.9-1.1) APTT 28 (21-31) Seconds PTT Ratio 1.0 D-Dimer < 190 (0-500) ug/L FEU Sodium 141 (136-145) mmol/L Potassium 4.3 (3.5-5.1) mmol/L Chloride 108 H (98-107) mmol/L Carbon Dioxide 24 (21-32) mmol/L Anion Gap 9 (3-11) BUN 15 (6-23) mg/dl Creatinine 1.05 (0.6-1.4) mg/dl Est Cr Clr Drug Dosing 87.9 ml/min Est GFR ( Amer) 96.1 ml/min Est GFR (Non-Af Amer) 83.0 ml/min BUN/Creatinine Ratio 14.3 (10-20) Glucose 102 H (70-99(Fasting)) mg/dl Calcium 9.5 (8.6-10.3) mg/dl Magnesium 2.2 (1.7-2.4) mg/dl Total Bilirubin 0.6 (0.2-1.0) mg/dl AST 21 (13-39) U/L ALT 21 (7-52) U/L Alkaline Phosphatase 74 (34-104) U/L Troponin I High Sens 2.4 (0-20) pg/ml C-Reactive Protein < 0.50 (0-0.5) mg/dl B-Natriuretic Peptide 21 (0-100) pg/ml Total Protein 7.8 (6.0-8.3) gm/dl Albumin 4.7 (3.4-5.0) gm/dl Globulin 3.1 (2.5-4.0) gm/dl Albumin/Globulin Ratio 1.5 (0.9-2) Lipase 17 (11-82) U/L TSH 5.250 H (0.300-4.500) uIu/ml Free T4 0.87 (0.61-1.60) ng/dl Urine Color Yellow Urine Appearance Clear (Clear) Urine pH 6.0 (4.5-7.5) Ur Specific [place] >= 1.030 (1.000-1.030) Urine Protein Negative (Negative) Urine Glucose (UA) Negative (Negative) Urine Ketones Negative (Negative) Urine Blood Negative (Negative) Urine Nitrite Negative (Negative) Urine Bilirubin Negative (Negative) Urine Urobilinogen Negative (Negative) Ur Leukocyte Esterase Negative (Negative) Lyme Disease IgG Ab Positive A (Negative) Lyme Disease IgM Ab Negative (Negative) SARS-CoV-2 (PCR) NEGATIVE (Negative) Influenza Type A (PCR) Negative (Neg) Influenza Type B (PCR) Negative (Neg) RSV (RT-PCR) Negative (Neg) 07/10/23 Range/Units 07:03 WBC (4.8-10.8) K/ul RBC (4.70-6.10) M/uL Hgb (14.0-18.0) g/dl Hct (42.0-52.0) % MCV (80.0-100.0) fL MCH (25.0-34.0) pg MCHC (32.0-36.0) g/dL RDW Std Deviation (36.4-46.3) fL RDW Coeff of Sheldon (11.5-14.5) % Plt Count (130-400) K/uL MPV (9.4-12.4) fL Immature Gran % (Auto) % Neut % (Auto) % Lymph % (Auto) % Dixie % (Auto) % Eos % (Auto) % Baso % (Auto) % Neut # (Auto) (1.40-6.50) K/uL Lymph # (Auto) (1.20-3.40) K/uL Dixie # (Auto) (0.11-0.59) K/uL Eos # (Auto) (0.00-0.50) K/uL Baso # (Auto) (0.00-0.20) K/uL Immature Gran # (Auto) (0.01-0.20) K/uL ESR (0-15) mm/hr PT (9.0-12.0) Seconds INR (0.9-1.1) APTT (21-31) Seconds PTT Ratio D-Dimer (0-500) ug/L FEU Sodium (136-145) mmol/L Potassium (3.5-5.1) mmol/L Chloride (98-107) mmol/L Carbon Dioxide (21-32) mmol/L Anion Gap (3-11) BUN (6-23) mg/dl Creatinine (0.6-1.4) mg/dl Est Cr Clr Drug Dosing ml/min Est GFR ( Amer) ml/min Est GFR (Non-Af Amer) ml/min BUN/Creatinine Ratio (10-20) Glucose (70-99(Fasting)) mg/dl Calcium (8.6-10.3) mg/dl Magnesium (1.7-2.4) mg/dl Total Bilirubin (0.2-1.0) mg/dl AST (13-39) U/L ALT (7-52) U/L Alkaline Phosphatase (34-104) U/L Troponin I High Sens < 2.3 (0-20) pg/ml C-Reactive Protein (0-0.5) mg/dl B-Natriuretic Peptide (0-100) pg/ml Total Protein (6.0-8.3) gm/dl Albumin (3.4-5.0) gm/dl Globulin (2.5-4.0) gm/dl Albumin/Globulin Ratio (0.9-2) Lipase (11-82) U/L TSH (0.300-4.500) uIu/ml Free T4 (0.61-1.60) ng/dl Urine Color Urine Appearance (Clear) Urine pH (4.5-7.5) Ur Specific [place] (1.000-1.030) Urine Protein (Negative) Urine Glucose (UA) (Negative) Urine Ketones (Negative) Urine Blood (Negative) Urine Nitrite (Negative) Urine Bilirubin (Negative) Urine Urobilinogen (Negative) Ur Leukocyte Esterase (Negative) Lyme Disease IgG Ab (Negative) Lyme Disease IgM Ab (Negative) SARS-CoV-2 (PCR) (Negative) Influenza Type A (PCR) (Neg) Influenza Type B (PCR) (Neg) RSV (RT-PCR) (Neg) Administered Medications Enoxaparin Sodium (Enoxaparin Inj 40 Mg/0.4 Ml Syr) 40 mg SQ Q24H LEIDY Stop: 08/09/23 14:14 Last Admin: 07/10/23 14:16 Dose: Not Given Documented By: MG Ibuprofen (Ibuprofen 800 Mg Tab) 800 mg PO TID LEIDY Stop: 08/09/23 13:59 Last Admin: 07/10/23 20:07 Dose: 800 mg Documented By: Admin: 07/10/23 13:30 Dose: 800 mg Documented By: MG Nitroglycerin (Nitroglycerin Sl 0.4 Mg/Tab Tab) 0.4 mg SL Q5M PRN PRN Reason: Chest Pain Stop: 08/09/23 05:14 Last Admin: 07/10/23 05:26 Dose: 0.4 mg Documented By: BRIDGETTE Pantoprazole Sodium (Pantoprazole 40 Mg Tab) 40 mg PO HS LEIDY Stop: 08/09/23 20:59 Last Admin: 07/10/23 20:07 Dose: 40 mg Documented By: GABRIELA Discontinued Medications Albuterol (Albut/Ipratrop 3mg/0.5mg Neb 3 Ml Vial) 3 ml NEB NOW STA; Protocol Stop: 07/10/23 06:23 Last Admin: 07/10/23 06:34 Dose: 3 ml Documented By: BRIDGETTE Colchicine (Colchicine 0.6 Mg Tab) 1.2 mg PO NOW ONE Stop: 07/10/23 11:33 Last Admin: 07/10/23 13:30 Dose: 1.2 mg Documented By: MG Sodium Chloride (Nss) 500 mls @ 999 mls/hr IV .Q31M STA Stop: 07/10/23 05:45 Last Infusion: 07/10/23 06:34 Dose: Infused Documented By: Admin: 07/10/23 05:26 Dose: 999 mls/hr Documented By: BRIDGETTE Ioversol (Optiray 320 500ml) 90 ml IV ONCE ONE Stop: 07/10/23 08:39 Last Admin: 07/10/23 08:39 Dose: 90 ml Documented By: SYLVAIN Ketorolac Tromethamine (Ketorolac Tromethamine 15 Mg/Ml Vial) 10 mg IV NOW ONE Stop: 07/10/23 06:23 Last Admin: 07/10/23 06:34 Dose: 10 mg Documented By: BRIDGETTE Methylprednisolone (Methylprednisolone 125 Mg/2 Ml Vial) 60 mg IV NOW STA Stop: 07/10/23 10:08 Last Admin: 07/10/23 10:46 Dose: 60 mg Documented By: ROSEANN Metoprolol Tartrate (Metoprolol Tartrate 25 Mg Tab) 25 mg PO NOW ONE Stop: 07/10/23 14:01 Last Admin: 07/10/23 14:03 Dose: 25 mg Documented By: MG Morphine Sulfate (Morphine Sulfate 4 Mg/Ml 1 Ml Carp\Vial) 4 mg IV NOW STA Stop: 07/10/23 07:34 Last Admin: 07/10/23 08:04 Dose: Not Given Documented By: ROSEANN Morphine Sulfate (Morphine Sulfate 2 Mg/Ml Carp) 2 mg IV NOW STA Stop: 07/10/23 09:37 Last Admin: 07/10/23 09:58 Dose: 2 mg Documented By: AM Ondansetron HCl (Ondansetron Inj 2 Mg/Ml 2 Ml Vial) 4 mg IV NOW STA Stop: 07/10/23 07:34 Last Admin: 07/10/23 08:04 Dose: Not Given Documented By: ROSEANN Ondansetron HCl (Ondansetron Inj 2 Mg/Ml 2 Ml Vial) Confirm Administered Dose 4 mg .ROUTE .STK-MED ONE Stop: 07/10/23 09:57 Last Admin: 07/10/23 09:57 Dose: 4 mg Documented By: AM Imaging Data My Impression: CT of the chest with contrast was interpreted by me and read by radiology. It shows no acute process of the chest. No pleural effusion or lymphadenopathy. Multinodular thyroid. Scattered low suspicion pulmonary nodules measuring up to 4 mm. He is not considered high risk and no follow-up CT imaging is recommended. Radiologist's Impression: Chest X-Ray 07/10/23 05:15 XR chest 1V portable HISTORY: 47 years-old Male Chest pain, nonspecific acute chest pain COMPARISON: None TECHNIQUE: AP view of the chest FINDINGS: Cardiomediastinal and hilar silhouettes are within normal limits. No pneumothorax, pleural effusion or pulmonary edema. Mild nonspecific interstitial coarsening with bibasilar atelectasis. Bones appear grossly intact. IMPRESSION: Mild bibasilar atelectasis without acute process of the chest. ACT 112: Negative or not required by law. The above report was generated using voice recognition software. It may contain grammatical, syntax or spelling errors. Electronically signed by: Ed Ignacio M.D. 07/10/2023 9:[address] 07/10/23 07:[address] WITH CONTRAST CT DOSE: 536.76 mGy.cm HISTORY: Acute chest pain or shortness of breath Chest pain, sob TECHNIQUE: Multiaxial CT images of the chest were performed following the IV administration of 90 cc of Optiray. A dose lowering technique was utilized adhering to the principles of ALARA. COMPARISON: Chest radiograph of same day FINDINGS: Multinodular thyroid with nodules measuring up to 11 mm on the left. There is no lymphadenopathy. Heart is normal in size. No pericardial effusion. Unremarkable thoracic aorta opacified pulmonary artery. No pneumothorax, pleural effusion or overt pulmonary edema. Bibasilar atelectasis. There is mild biapical pleural parenchymal scarring with areas of traction bronchiectasis. No suspicious pulmonary nodules or masses. 4 mm groundglass nodule of the right middle lobe on image 83. There are a few scattered benign-appearing fissural nodules measuring 3-4 mm. 4 mm solid nodule in the right lower lobe on image 111. Central airways are patent. Atrophy of the superior pole left kidney with cortical thinning. 1.4 cm cyst of the superior pole left kidney. There are a few scattered hepatic cysts. Unremarkable soft tissues. Upper thoracic levoscoliosis. No acute fracture. IMPRESSION: 1. No acute process of the chest. 2. No pleural effusion or lymphadenopathy. 3. Multinodular thyroid. 4. There are a few scattered low suspicion pulmonary nodules measuring up to 4 mm. Please refer to below summary of Fleischner criteria recommendations for follow- up of incidental CT nodules (Ariana Miranda, Guidelines for management of small pulmonary nodules detected on CT scans: A statement from the Fleischner Society, Radiology 237: [phone].) SOLID NODULES Multiple nodules size: <6 mm * Low risk patients: no routine follow-up * high risk patients: optional CT at 12 months Note: newly detected indeterminate nodule in persons 35 years of age or older. * Low risk patients: minimal or absent history of smoking and/or other known risk factors * high risk patients: history of smoking or of other known risk factors (e.g. first degree relative with lung cancer, or exposure to asbestos, radon, uranium) * if a nodule up to 8 mm is partly solid or is ground glass further follow-up is required after 24 months to exclude possible slow growing adenocarcinoma (BIBI) SUBSOLID NODULES Solitary pure ground-glass nodule * nodule size <6 mm - no CT follow-up required * nodule size >=6 mm - follow-up CT at 6-12 months, then every 2 years until 5 years The above report was generated using voice recognition software. It may contain grammatical, syntax or spelling errors. ACT 112: Negative or not required by law. Electronically signed by: Ed Ignacio M.D. 07/10/2023 9:11 AM Discharge Plan Visit Data Chief Complaint: Chest Pain Stated Complaint: CHEST PAIN ED Provider: Sarah Bartlett ED Midlevel Provider: Jermain Santana Discharge Problem: Chest pain Patient Disposition: Admitted As Inpatient Discharge Instructions Interventions: ED Discharge Assessment Last Done: 07/10/23 12:19
[2023-07-10] MEDS: OPTIRAY 320 500ml IV ONE (08:39)
--- NOTE | 2023-07-10 09:08 | XRay Report ---
XR chest 1V portable HISTORY: 47 years-old Male Chest pain, nonspecific acute chest pain COMPARISON: None TECHNIQUE: AP view of the chest FINDINGS: Cardiomediastinal and hilar silhouettes are within normal limits. No pneumothorax, pleural effusion o r pulmonary edema. Mild nonspecific interstitial coarsening with bibasilar atelectasis. Bones appear grossly intact. IMPRESSION: Mild bibasilar atelectasis without acute process of the chest. ACT 112: Negative or not required by law. The above report was generated using voice recognition software. It may contain grammatical, syntax o r spelling errors. Electronically signed by: Ed Ignacio M.D. 07/10/2023 9:06 AM
--- NOTE | 2023-07-10 09:13 | CT Scan Report ---
CHEST CT WITH CONTRAST CT DOSE: 536.76 mGy.cm HISTORY: Acute chest pain or shortness of breath Chest pain, sob TECHNIQUE: Multiaxial CT images of the chest were performed following the IV administration of 90 cc of Optiray. A dose lowering technique was utilized adhering to the principles of ALARA. COMPARISON: Chest radiograph of same day FINDINGS: Multinodular thyroid with nodules measuring up to 11 mm on the left. There is no lymphadeno sandy. Heart is normal in size. No pericardial effusion. Unremarkable thoracic aorta opacified pulmon meme artery. No pneumothorax, pleural effusion or overt pulmonary edema. Bibasilar atelectasis. There is mild biap ical pleural parenchymal scarring with areas of traction bronchiectasis. No suspicious pulmonary nodu les or masses. 4 mm groundglass nodule of the right middle lobe on image 83. There are a few scattere d benign-appearing fissural nodules measuring 3-4 mm. 4 mm solid nodule in the right lower lobe on im age 111. Central airways are patent. Atrophy of the superior pole left kidney with cortical thinning. 1.4 cm cyst of the superior pole lef t kidney. There are a few scattered hepatic cysts. Unremarkable soft tissues. Upper thoracic levoscol iosis. No acute fracture. IMPRESSION: 1. No acute process of the chest. 2. No pleural effusion or lymphadenopathy. 3. Multinodular thyroid. 4. There are a few scattered low suspicion pulmonary nodules measuring up to 4 mm. Please refer to below summary of Fleischner criteria recommendations for follow-up of incidental CT n odules (Ariana Miranda, Guidelines for management of small pulmonary nodules detected on CT scans: A sta tement from the Fleischner Society, Radiology 237: [phone].) SOLID NODULES Multiple nodules size: <6 mm * Low risk patients: no routine follow-up * high risk patients: optional CT at 12 months Note: newly detected indeterminate nodule in persons 35 years of age or older. * Low risk patients: minimal or absent history of smoking and/or other known risk factors * high risk patients: history of smoking or of other known risk factors (e.g. first degree relative with lung cancer, or exposure to asbestos, radon, uranium) * if a nodule up to 8 mm is partly solid or is ground glass further follow-up is required after 24 m onths to exclude possible slow growing adenocarcinoma (BIBI) SUBSOLID NODULES Solitary pure ground-glass nodule * nodule size <6 mm - no CT follow-up required * nodule size >=6 mm - follow-up CT at 6-12 months, then every 2 years until 5 years The above report was generated using voice recognition software. It may contain grammatical, syntax o r spelling errors. ACT 112: Negative or not required by law. Electronically signed by: Ed Ignacio M.D. 07/10/2023 9:11 AM
--- NOTE | 2023-07-10 09:19 | Electrocardiogram Report ---
Test Reason : Blood Pressure : / mmHG Vent. Rate : 099 BPM Atrial Rate : 099 BPM P-R Int : 134 ms QRS Dur : 084 ms QT Int : 368 ms P-R-T Axes : 060 048 040 degrees QTc Int : 472 ms Normal sinus rhythm Normal ECG No previous ECGs available Confirmed by Richard Knapp ([id number]) on 07/10/2023 9:19:20 AM Referred By: REFERRED SELF Confirmed By:Richard Knapp
[2023-07-10] MEDS: ONDANSETRON INJ 2 MG/ML 2 ML VIAL ONE (09:57)
[2023-07-10] MEDS: MoRPHine SULFATE 2 MG/ML CARP IV STA (09:58)
[2023-07-10] MEDS: methylPREDNISolone 125 MG/2 ML VIAL IV STA (10:46)
--- NOTE | 2023-07-10 10:59 | History & Physical Report ---
Date of Service July 10, 2023 Assessment & Plan (1) Acute pericarditis: (2) Chest pain: Plan: Suspect acute pericarditis given positional nature and lack of evidence for ACS. Echo performed in the ER with reading pending. Start colchicine 0.6mg BID (started with higher dose of 1.2mg given acuity of symptoms-advised pt on side effects such as diarrhea), Ibuprofen 800mg TID. ESR, CRP ordered. Pt does have a h/o virus in early May (two months ago). Continue these until pain symptoms have resolved then continue with colchicine x 3 months. He has no current concerns for cardiac tamponade or constrictive pericarditis, will watch for echo results. Will adjust his omeprazole to daily scheduled instead of PRN for GI prophylaxis given h/o intermittent prednisone use. Appreciate cardiology recommendations. (3) Hodgkins disease: Plan: Given his history of chest radiation for treatment of Hodgkin's lymphoma as a teenager he is at risk for early coronary artery disease, pulmonary fibrosis and early valvular heart disease such as aortic stenosis, and pericarditis. This is not an exhaustive list. He did have a troponin enzyme which was negative on repeat with ongoing chest pain for more than 12 hours, with some reassurance this is less likely ACS. Pain is not improved with morphine, Toradol, nitro. Will admit him for pain control and continued workup of his chest pain. Notably he has elevated cholesterol historically and is on Crestor, which will be continued. He also has additional risk factors for heart disease including a family history of a twin brother who has hyperlipidemia. (4) S/P splenectomy: (5) Dyslipidemia: Plan: chronic, stable. Repeat fasting lipid panel in am. Cont crestor per home regimen. DVT proph: Lovenox Full Code Dispo- telemetry I spent a total [id number] coordinating, documenting, and providing care for this patient excluding time spent in the performance of separately billed services Alejandrina De Dios DO [facility] Hospitalist History of Present Illness Chief Complaint: chest pain Primary Care Provider: Vineet Alejandra MD 47 yo M with a history of Hodgkin's disease in remission for 30 years presents with acute onset chest pain. The pain began around 10pm and is dull and strong, substernal and improved with sitting up. He reports falling asleep and waking up again with the pain twice overnight, the second time he decided to come to the ER with the pain increasing. He denies SOB or decreased functional capacity. He does report having 2-3 episodes of shortness of breath throughout the year, improved with a course of prednisone which has not been present for months now. He has a h/o cough-variant asthma per records and denies taking the Symbicort that was prescribed. He sees allergy, Dr. Clifton and also takes azelastine nasal spray. He was taking floonase nasal spray in conjunction with the azelastine, but stopped this 2/2 nosebleeds. He reports stopping Ajovy for migraines last fall as this was giving him palpitations. He takes Imitrex and occasionally Motrin for abortive treatment of migraines, and reports migraines occur frequently. He denies having chest pain prior to last night. Per review of outpatient records he was seen by cardiology April 2022 for follow-up of cardiovascular risk factor management. As a teenager he was treated for Hodgkin's disease with radiation to the chest and has been in remission for decades, with treatment given through [facility] in [place], [place] in the . During that cardiology visit, he reported no issues with shortness of breath or chest pain but he did have chest wall pain on occasion from costochondritis. He had an echocardiogram at that time which was reviewed at that time reporting some external compression of the posterior wall during contraction which was interpreted as normal motion with some valve sclerosis but no significant pathology. Palpation of his chest wall today doesn't elicit any pain and he reports this would be the case during his prior costochondritis episodes. He does report travelling to [facility] in Apr 2023 and catching an URI, non-covid virus from which he has been recovered for two months. He was given, NSS 500cc, Toradol 10mg IV (4 hours ago), albuterol NEB, morphine 2mg IV, zofran 4mg IV with no improvement in symptoms. ER provider gave solumedrol 60mg IV within the last hour. He reports ongoing discomfort and vitals are 112/87, P 118, R 31, Temp 36.0. He denies any respiratory symptoms, GI symptoms such as diarrhea, no fevers or chills, no weight loss. He is oxygenating well on room air. CT chest with contrast reveals no evidence of acute process in the chest with scattered pulm nodules and traction bronchiectasis noted. Pt reports being aware of this as a side effect of prior HD treatment. Allergies Allergy/AdvReac Type Severity Reaction Status Date / Time No Known Allergies Allergy Verified 11/18/19 05:56 Home Medications Medication Instructions Recorded Confirmed Type sumatriptan succinate 100 mg 100 mg PO DIRECTED PRN Migraine 11/04/19 07/10/23 History tablet (Imitrex) Headache azelastine 137 mcg (0.1 %) nasal 2 spray intranasal DAILY 11/07/19 07/10/23 History spray aerosol omeprazole 20 mg tablet,delayed 20 mg PO HS PRN Other 07/10/23 07/10/23 History release rosuvastatin 10 mg tablet 10 mg PO DAILY 07/10/23 07/10/23 History Past Med/Surg History Medical History (Updated 07/10/23 @ 12:19 by Alejandrina De Dios DO) Dyslipidemia Migraine 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 Family history of pancreatic cancer Diverticulitis Hodgkin's disease in remission Ganglion cyst of left foot Kidney cysts Heartburn Rhinitis, nonallergic Cough variant asthma Prediabetes Thyroid nodule Surgical History (Updated 07/10/23 @ 11:04 by Alejandrina De Dios DO) S/P repair of hydrocele s/p removal of hydrocele, left History of reduction surgery of left breast 1989 H/O exploratory laparotomy 1990 H/O lymph node biopsy 1990- deep right cervical area S/P splenectomy Family History (Updated 07/10/23 @ 11:05 by Alejandrina De Dios DO) Mother , at 67 yo Pancreatic cancer Brother Dyslipidemia Social History (Updated 07/10/23 @ 11:55 by Alejandrina De Dios DO) Smoking Status: Never smoker Tobacco Type: Cigarettes Hx Alcohol Use: Yes Alcohol Intake Frequency: 2-3 x/Week Preferred Language: Persian Feels Safe at Home: Yes Physical Exam Physical Exam: CONSTITUTIONAL: WNWD, vitals as above, in moderate distress from pain, better with sitting straight up. EYES: PERRL, normal conjunctivae, no scleral icterus ENT: external ear and nose normal, oropharynx clear, MMM NECK: trachea midline, well healed scar on base right anterior neck, no JVD RESPIRATORY: clear to auscultation bilaterally aside from some mild crackles at the bases bilaterally. No rales or wheezes, mild tachypnea noted. CARDIOVASCULAR: tachy rate and reg rhythm, S1 and 2 heard without murmurs, gall ops or rubs, no JVD, no peripheral edema CHEST: inspection of chest was normal GASTROINTESTINAL: well healed vertical scar in central abdomen, soft, nontender, ND, no guarding MUSCULOSKELETAL: strength 5/5 throughout, head is normocephalic and atraumatic, normal palpation of chest wall without tenderness SKIN: warm and dry, no rashes NEUROLOGIC: CN 2-12 grossly intact, no sensory deficit, normal cognition, normal speech, no tremor PSYCHIATRIC: alert cooperative and oriented to person, place and time. Euthymic mood, makes good eye contact, language grossly intact, recent and remote memory grossly intact. Results & Data Results & Data Vital Signs (Past 12 Hours) Vital Signs Temp Pulse Pulse Resp BP BP Pulse Ox 07/10/23 10:30 119 H 29 H 96 07/10/23 10:30 131/86 07/10/23 10:00 115 H 34 H 96 07/10/23 10:00 134/85 07/10/23 09:57 140/84 07/10/23 09:57 112 H 36 H 97 07/10/23 09:30 107 H 26 H 96 07/10/23 09:25 103 H 07/10/23 09:00 105 H 22 97 07/10/23 08:44 113 H 32 H 100 07/10/23 08:00 102 H 20 99 07/10/23 08:00 115/74 07/10/23 07:50 98 H 19 98 07/10/23 07:40 102 H 23 96 07/10/23 07:30 95 H 23 97 07/10/23 07:30 116/75 07/10/23 07:20 102 H 27 H 97 07/10/23 07:10 97 H 25 H 95 07/10/23 07:00 95 H 18 96 07/10/23 07:00 99/78 L 07/10/23 06:40 82 19 96 07/10/23 06:38 88 21 96 07/10/23 06:38 131/84 07/10/23 06:30 91 H 25 H 96 07/10/23 06:20 100 H 27 H 96 07/10/23 06:10 91 H 20 97 07/10/23 06:00 87 26 H 96 07/10/23 05:54 94 H 16 96 07/10/23 05:54 113/69 07/10/23 05:50 92 H 26 H 95 07/10/23 05:40 85 22 92 07/10/23 05:30 99 H 19 95 07/10/23 05:20 91 H 27 H 97 07/10/23 05:18 96 07/10/23 05:16 99 H 07/10/23 05:10 92 H 23 100 07/10/23 05:09 98 07/10/23 05:08 94 H 27 H 98 07/10/23 05:00 92 H 20 121/78 98 07/10/23 04:51 36.0 C L 109 H 18 148/92 H 97 O2 Del Method 07/10/23 10:30 07/10/23 10:30 07/10/23 10:00 07/10/23 10:00 07/10/23 09:57 07/10/23 09:57 07/10/23 09:30 07/10/23 09:25 07/10/23 09:00 07/10/23 08:44 07/10/23 08:00 07/10/23 08:00 07/10/23 07:50 07/10/23 07:40 07/10/23 07:30 07/10/23 07:30 07/10/23 07:20 07/10/23 07:10 07/10/23 07:00 07/10/23 07:00 07/10/23 06:40 07/10/23 06:38 07/10/23 06:38 07/10/23 06:30 07/10/23 06:20 07/10/23 06:10 07/10/23 06:00 07/10/23 05:54 07/10/23 05:54 07/10/23 05:50 07/10/23 05:40 07/10/23 05:30 07/10/23 05:20 07/10/23 05:18 Room Air 07/10/23 05:16 07/10/23 05:10 07/10/23 05:09 Room Air 07/10/23 05:08 07/10/23 05:00 Room Air 07/10/23 04:51 Room Air Laboratory Results Short CBC 02/04/24 Range/Units 05:03 WBC 10.39 (4.8-10.8) K/ul Hgb 15.5 (14.0-18.0) g/dl Hct 47.8 (42.0-52.0) % Plt Count 355 (130-400) K/uL BMP 07/10/23 05:03 Sodium 141 Potassium 4.3 Chloride 108 H Carbon Dioxide 24 BUN 15 Creatinine 1.05 Glucose 102 H Calcium 9.5 Liver Function 07/10/23 Range/Units 05:03 Total Bilirubin 0.6 (0.2-1.0) mg/dl AST 21 (13-39) U/L ALT 21 (7-52) U/L Alkaline Phosphatase 74 (34-104) U/L Albumin 4.7 (3.4-5.0) gm/dl Urine 07/10/23 Range/Units 05:03 Urine Color Yellow Urine Appearance Clear (Clear) Urine pH 6.0 (4.5-7.5) Ur Specific [place] >= 1.030 (1.000-1.030) Urine Protein Negative (Negative) Urine Glucose (UA) Negative (Negative) Diagnostic Findings Chest X-Ray 07/10/23 05:15 XR chest 1V portable HISTORY: 47 years-old Male Chest pain, nonspecific acute chest pain COMPARISON: None TECHNIQUE: AP view of the chest FINDINGS: Cardiomediastinal and hilar silhouettes are within normal limits. No pneumothorax, pleural effusion or pulmonary edema. Mild nonspecific interstitial coarsening with bibasilar atelectasis. Bones appear grossly intact. IMPRESSION: Mild bibasilar atelectasis without acute process of the chest. ACT 112: Negative or not required by law. The above report was generated using voice recognition software. It may contain grammatical, syntax or spelling errors. Electronically signed by: Ed Ignacio M.D. 07/10/2023 9:[address] 07/10/23 07:[address] WITH CONTRAST CT DOSE: 536.76 mGy.cm HISTORY: Acute chest pain or shortness of breath Chest pain, sob TECHNIQUE: Multiaxial CT images of the chest were performed following the IV administration of 90 cc of Optiray. A dose lowering technique was utilized adhering to the principles of ALARA. COMPARISON: Chest radiograph of same day FINDINGS: Multinodular thyroid with nodules measuring up to 11 mm on the left. There is no lymphadenopathy. Heart is normal in size. No pericardial effusion. Unremarkable thoracic aorta opacified pulmonary artery. No pneumothorax, pleural effusion or overt pulmonary edema. Bibasilar atelectasis. There is mild biapical pleural parenchymal scarring with areas of traction bronchiectasis. No suspicious pulmonary nodules or masses. 4 mm groundglass nodule of the right middle lobe on image 83. There are a few scattered benign-appearing fissural nodules measuring 3-4 mm. 4 mm solid nodule in the right lower lobe on image 111. Central airways are patent. Atrophy of the superior pole left kidney with cortical thinning. 1.4 cm cyst of the superior pole left kidney. There are a few scattered hepatic cysts. Unremarkable soft tissues. Upper thoracic levoscoliosis. No acute fracture. IMPRESSION: 1. No acute process of the chest. 2. No pleural effusion or lymphadenopathy. 3. Multinodular thyroid. 4. There are a few scattered low suspicion pulmonary nodules measuring up to 4 mm. Please refer to below summary of Fleischner criteria recommendations for follow- up of incidental CT nodules (Ariana Miranda, Guidelines for management of small pulmonary nodules detected on CT scans: A statement from the Fleischner Society, Radiology 237: [phone].) SOLID NODULES Multiple nodules size: <6 mm * Low risk patients: no routine follow-up * high risk patients: optional CT at 12 months Note: newly detected indeterminate nodule in persons 35 years of age or older. * Low risk patients: minimal or absent history of smoking and/or other known risk factors * high risk patients: history of smoking or of other known risk factors (e.g. first degree relative with lung cancer, or exposure to asbestos, radon, uranium) * if a nodule up to 8 mm is partly solid or is ground glass further follow-up is required after 24 months to exclude possible slow growing adenocarcinoma (BIBI) SUBSOLID NODULES Solitary pure ground-glass nodule * nodule size <6 mm - no CT follow-up required * nodule size >=6 mm - follow-up CT at 6-12 months, then every 2 years until 5 years The above report was generated using voice recognition software. It may contain grammatical, syntax or spelling errors. ACT 112: Negative or not required by law. Electronically signed by: Ed Ignacio M.D. 07/10/2023 9:11 AM Code Status & VTE Plan VTE Prophylaxis Plan VTE Prophylaxis will be ordered: Yes (1) Acute pericarditis Pericarditis type: unspecified type Qualified Code(s): I30.9 - Acute pericarditis, unspecified (2) Chest pain Chest pain type: pleurodynia Qualified Code(s): R07.81 - Pleurodynia
[2023-07-10 12:37] LABS: C Reactive Protein < 0.50 mg/dl (0-0.5)
[2023-07-10] MEDS ORDERED: ACETAMINOPHEN 325 MG TAB PO PRN (12:43)
[2023-07-10] MEDS ORDERED: MoRPHine SULFATE 2 MG/ML CARP IV PRN (12:43)
[2023-07-10] MEDS ORDERED: POLYETHYLENE (MIRALAX) 17 GM PACK PO PRN (12:43)
[2023-07-10] MEDS: IBUPROFEN 800 MG TAB PO SCH (13:30)
[2023-07-10] MEDS: COLCHICINE 0.6 MG TAB PO ONE (13:30)
--- NOTE | 2023-07-10 13:31 | Electrocardiogram Report ---
Test Reason : Blood Pressure : / mmHG Vent. Rate : 119 BPM Atrial Rate : 119 BPM P-R Int : 166 ms QRS Dur : 084 ms QT Int : 326 ms P-R-T Axes : 053 035 036 degrees QTc Int : 458 ms Sinus tachycardia Otherwise normal ECG When compared with ECG of 10-JUL-2023 04:56, No significant change was found Confirmed by Richard Knapp ([id number]) on 07/10/2023 1:31:47 PM Referred By: REFERRED SELF Confirmed By:Richard Knapp
--- NOTE | 2023-07-10 13:41 | Cardiology Consultation ---
Date of Consultation July 10, 2023 Assessment & Plan (1) Acute pleuropericarditis: (2) Dyslipidemia: (3) Hodgkins disease: Plan 47-year-old male presents with symptoms consistent with acute pleuropericarditis. Echocardiogram felt pericardial effusion. Initial EKG without acute changes EKG done in my presence demonstrates mild J-point elevation with DC depression 1 and aVL consistent with diagnosis Cardiac enzymes and CT of chest without acute abnormality Impression: Acute pleuropericarditis: Agree with current plans as already ordered nonsteroidals, colchicine Follow enzymes serially repeat EKG in a.m. Will hold further corticosteroid Aggressive evaluation with any fever given history of splenectomy History of Hodgkin's lymphoma status post mantle radiation. Mild thickened aortic and mitral valves on echocardiogram no findings suggest acute coronary syndrome Hyperlipidemia on therap History of Present Illness Reason for Consultation: Chest pain Requesting Physician: Dr. De Dios Attending Physician: Alejandrina De Dios, History of Present Illness Patient is a 47-year-old male without known cardiac disease. Underlying medical and cardiac concerns include 1. Hodgkin's lymphoma age 15, treated with mantle radiation, splenectomy 2. Mild hyperlipidemia 3. Mild hyperglycemia Patient is referred for further evaluation having developed evening prior to admission approximately 10 PM sudden onset sharp and heavy pain and precordial chest radiating to neck and shoulders. Symptoms worse with inspiration and positional changes. Patient slept in a chair due to complaints awakened multiple times with pain with movement. Ultimately presented to the emergency room for further evaluation. Initial EKG without abnormalities. Troponins negative x 2. CT of chest negative for pathology. Patient treated with Toradol, morphine, prednisolone IV. Echocardiogram with preserved LV systolic function mild thickened aortic and mitral valve leaflets, normal aortic root size on study of fair technical quality. Symptoms are improving since ER presentation but still present with movement and deep inspiration Upper respiratory infection approximately 2 weeks ago but no current symptoms of fevers chills or cough. Appetite and weight are stable with recent attempt to lose weight, limiting snacks. No bleeding issues. No racing heart dizziness or lightheadedness. Heart rate elevated since ER presentation. Allergies Allergy/AdvReac Type Severity Reaction Status Date / Time No Known Allergies Allergy Verified 11/18/19 05:56 Home Medications Medication Instructions Recorded Confirmed Type sumatriptan succinate 100 mg 100 mg PO DIRECTED PRN Migraine 11/04/19 07/10/23 History tablet (Imitrex) Headache azelastine 137 mcg (0.1 %) nasal 2 spray intranasal DAILY 11/07/19 07/10/23 History spray aerosol omeprazole 20 mg tablet,delayed 20 mg PO HS PRN Other 07/10/23 07/10/23 History release rosuvastatin 10 mg tablet 10 mg PO DAILY 07/10/23 07/10/23 History Patient History Medical History (Updated 07/10/23 @ 13:47 by Tone Seals MD) Dyslipidemia Migraine 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 Family history of pancreatic cancer Diverticulitis Hodgkin's disease in remission Ganglion cyst of left foot Kidney cysts Heartburn Rhinitis, nonallergic Cough variant asthma Prediabetes Thyroid nodule Surgical History (Updated 07/10/23 @ 11:04 by Alejandrina De Dios DO) S/P repair of hydrocele s/p removal of hydrocele, left History of reduction surgery of left breast 1989 H/O exploratory laparotomy 1990 H/O lymph node biopsy 1990- deep right cervical area S/P splenectomy Family History (Updated 07/10/23 @ 11:05 by Alejandrina De Dios DO) Mother , at 67 yo Pancreatic cancer Brother Dyslipidemia Social History (Updated 07/10/23 @ 11:55 by Alejandrina De Dios DO) Smoking Status: Never smoker Tobacco Type: Cigarettes Do You Dip or Chew Tobacco: No; Hx Alcohol Use: Yes Alcohol type: wine Alcohol Intake Frequency: 2-3 x/Week Hx Substance Use: No Preferred Language: Togolese Communication Ability: Effective Bundle Helper Required: No Beliefs That Will Affect Care: None Current Living Situation: Spouse Other Information That Helps Us Care for You: No Feels Safe at Home: Yes Safety Concerns: Feels Safe At This Time Assistive Devices: None Review of Systems Review of Systems: All systems reviewed & are unremarkable except as noted in HPI & below Physical Exam Constitutional: WD/WN, vitals as above no acute distress Eyes: PERRL, conjunctivae normal, anicteric sclerae ENMT: external ear and nose normal, oropharynx normal Neck: trachea midline, no thyromegaly Respiratory: normal respiratory effort, lungs clear to auscultation Cardiovascular: Rate/Rhythm: regular rate, regular rhythm and + tachycardic Heart Sounds: no murmur and no cardiac rub Vessels: normal carotid upstroke, femoral pulses present and radial pulses present; no JVD Extremities: no edema Gastrointestinal (Abdomen): normal bowel sounds, soft, nontender, no hepatosplenomegaly Musculoskeletal: no cyanosis or clubbing, extremities motor strength 5/5 Results & Data Vital Signs (Past 12 Hours) Vital Signs Temp Pulse Pulse Pulse Resp BP BP 07/10/23 12:58 36.9 C 125 H 16 135/85 07/10/23 11:00 118 H 31 H 112/87 07/10/23 10:30 119 H 29 H 07/10/23 10:30 131/86 07/10/23 10:00 115 H 34 H 07/10/23 10:00 134/85 07/10/23 09:57 140/84 07/10/23 09:57 112 H 36 H 07/10/23 09:30 107 H 26 H 07/10/23 09:25 103 H 07/10/23 09:00 105 H 22 07/10/23 08:44 113 H 32 H 07/10/23 08:00 102 H 20 07/10/23 08:00 115/74 07/10/23 07:50 98 H 19 07/10/23 07:40 102 H 23 07/10/23 07:30 95 H 23 07/10/23 07:30 116/75 07/10/23 07:20 102 H 27 H 07/10/23 07:10 97 H 25 H 07/10/23 07:00 95 H 18 07/10/23 07:00 99/78 L 07/10/23 06:40 82 19 07/10/23 06:38 88 21 07/10/23 06:38 131/84 07/10/23 06:30 91 H 25 H 07/10/23 06:20 100 H 27 H 07/10/23 06:10 91 H 20 07/10/23 06:00 87 26 H 07/10/23 05:54 94 H 16 07/10/23 05:54 113/69 07/10/23 05:50 92 H 26 H 07/10/23 05:40 85 22 07/10/23 05:30 99 H 19 07/10/23 05:20 91 H 27 H 07/10/23 05:18 07/10/23 05:16 99 H 07/10/23 05:10 92 H 23 07/10/23 05:09 07/10/23 05:08 94 H 27 H 07/10/23 05:00 92 H 20 121/78 07/10/23 04:51 36.0 C L 109 H 18 148/92 H Pulse Ox O2 Del Method 07/10/23 12:58 96 Room Air 07/10/23 11:00 94 07/10/23 10:30 96 07/10/23 10:30 07/10/23 10:00 96 07/10/23 10:00 07/10/23 09:57 07/10/23 09:57 97 07/10/23 09:30 96 07/10/23 09:25 07/10/23 09:00 97 07/10/23 08:44 100 07/10/23 08:00 99 07/10/23 08:00 07/10/23 07:50 98 07/10/23 07:40 96 07/10/23 07:30 97 07/10/23 07:30 07/10/23 07:20 97 07/10/23 07:10 95 07/10/23 07:00 96 07/10/23 07:00 07/10/23 06:40 96 07/10/23 06:38 96 07/10/23 06:38 07/10/23 06:30 96 07/10/23 06:20 96 07/10/23 06:10 97 07/10/23 06:00 96 07/10/23 05:54 96 07/10/23 05:54 07/10/23 05:50 95 07/10/23 05:40 92 07/10/23 05:30 95 07/10/23 05:20 97 07/10/23 05:18 96 Room Air 07/10/23 05:16 07/10/23 05:10 100 07/10/23 05:09 98 Room Air 07/10/23 05:08 98 07/10/23 05:00 98 Room Air 07/10/23 04:51 97 Room Air Laboratory Results Laboratory Results - last 24 hr 07/10/23 07/10/23 07/10/23 05:03 05:21 05:50 WBC 10.39 RBC 5.11 Hgb 15.5 Hct 47.8 MCV 93.5 MCH 30.3 MCHC 32.4 RDW Std Deviation 46.4 H RDW Coeff of [place] 13.6 Plt Count 355 MPV 11.0 Immature Gran % (Auto) 0.3 Neut % (Auto) 60.2 Lymph % (Auto) 27.5 [place] % (Auto) 10.3 Eos % (Auto) 1.2 Baso % (Auto) 0.5 Neut # (Auto) 6.26 Lymph # (Auto) 2.86 [place] # (Auto) 1.07 H Eos # (Auto) 0.12 Baso # (Auto) 0.05 Immature Gran # (Auto) 0.03 ESR 7 PT 11.5 INR 1.1 APTT 28 PTT Ratio 1.0 D-Dimer < 190 Sodium 141 Potassium 4.3 Chloride 108 H Carbon Dioxide 24 Anion Gap 9 BUN 15 Creatinine 1.05 Est Cr Clr Drug Dosing 87.9 Est GFR ( Amer) 96.1 Est GFR (Non-Af Amer) 83.0 BUN/Creatinine Ratio 14.3 Glucose 102 H Calcium 9.5 Magnesium 2.2 Total Bilirubin 0.6 AST 21 ALT 21 Alkaline Phosphatase 74 Troponin I High Sens 2.4 C-Reactive Protein < 0.50 B-Natriuretic Peptide 21 Total Protein 7.8 Albumin 4.7 Globulin 3.1 Albumin/Globulin Ratio 1.5 Lipase 17 TSH 5.250 H Free T4 0.87 Urine Color Yellow Urine Appearance Clear Urine pH 6.0 Ur Specific [place] >= 1.030 Urine Protein Negative Urine Glucose (UA) Negative Urine Ketones Negative Urine Blood Negative Urine Nitrite Negative Urine Bilirubin Negative Urine Urobilinogen Negative Ur Leukocyte Esterase Negative Lyme Disease IgG Ab Pending Lyme Disease IgM Ab Pending SARS-CoV-2 (PCR) NEGATIVE Influenza Type A (PCR) Negative Influenza Type B (PCR) Negative RSV (RT-PCR) Negative 07/10/23 07:03 WBC RBC Hgb Hct MCV MCH MCHC RDW Std Deviation RDW Coeff of [place] Plt Count MPV Immature Gran % (Auto) Neut % (Auto) Lymph % (Auto) [place] % (Auto) Eos % (Auto) Baso % (Auto) Neut # (Auto) Lymph # (Auto) [place] # (Auto) Eos # (Auto) Baso # (Auto) Immature Gran # (Auto) ESR PT INR APTT PTT Ratio D-Dimer Sodium Potassium Chloride Carbon Dioxide Anion Gap BUN Creatinine Est Cr Clr Drug Dosing Est GFR ( Amer) Est GFR (Non-Af Amer) BUN/Creatinine Ratio Glucose Calcium Magnesium Total Bilirubin AST ALT Alkaline Phosphatase Troponin I High Sens < 2.3 C-Reactive Protein B-Natriuretic Peptide Total Protein Albumin Globulin Albumin/Globulin Ratio Lipase TSH Free T4 Urine Color Urine Appearance Urine pH Ur Specific [place] Urine Protein Urine Glucose (UA) Urine Ketones Urine Blood Urine Nitrite Urine Bilirubin Urine Urobilinogen Ur Leukocyte Esterase Lyme Disease IgG Ab Lyme Disease IgM Ab SARS-CoV-2 (PCR) Influenza Type A (PCR) Influenza Type B (PCR) RSV (RT-PCR)
[2023-07-10] MEDS: METOPROLOL TARTRATE 25 MG TAB PO ONE (14:03)
[2023-07-10] MEDS: ENOXAPARIN INJ 40 MG/0.4 ML SYR SQ SCH (14:16)
[2023-07-10 14:33] LABS: Lyme Ab IgM w/WB Rflx Negative (Negative)
[2023-07-10 14:51] LABS: Lyme Ab IgG w/WB Rflx Positive (Negative)
[2023-07-10] MEDS: PANTOprazole 40 MG TAB PO SCH (20:07)
[2023-07-11] MEDS: SUMAtriptan succinate 50 MG TAB PO STA (01:16)
[2023-07-11 06:36] LABS: Hematocrit (blood only) 42.4 % (42.0-52.0); Hemoglobin 13.7 g/dl (14.0-18.0); Mean Corpuscular Hemoglobin 30.2 pg (25.0-34.0); Mean Corpuscular Hgb Conc 32.3 g/dL (32.0-36.0); Mean Corpuscular Volume 93.4 fL (80.0-100.0); Mean Platelet Volume 11.3 fL (9.4-12.4); Platelet Count 320 K/uL (130-400); RDW Coefficient of Variation 13.7 % (11.5-14.5); Red Blood Count 4.54 M/uL (4.70-6.10); White Blood Count 16.63 K/ul (4.8-10.8)
[2023-07-11 07:09] LABS: BUN Creatinine Ratio 16.5 (10-20); C Reactive Protein 15.57 mg/dl (0-0.5); Chol HDL Ratio 1.8 (0-5); Creatinine Clr Calc Pharmacy 84.6 ml/min; Est GFR (African American) 91.9 ml/min; Est GFR (Non-African American) 79.3 ml/min; Magnesium 2.2 mg/dl (1.7-2.4); Potassium 4.3 mmol/L (3.5-5.1)
[2023-07-11 07:40] LABS: Estimated Average Glucose 123 mg/dl; Hemoglobin A1C 5.9 % (4.5-5.6)
[2023-07-11] MEDS: DOXYCYCLINE HYCLATE 100 MG CAP PO SCH (09:00)
[2023-07-11] MEDS: ROSUVASTATIN CALCIUM 10 MG TAB PO SCH (09:01)
[2023-07-11] MEDS: COLCHICINE 0.6 MG TAB PO SCH (09:01)
[2023-07-11] MEDS: AZELASTINE HCL 0.1% NASAL 200 SPRAYS/27,400 MCG BTL NAE SCH (09:02)
--- NOTE | 2023-07-11 12:11 | Electrocardiogram Report ---
Test Reason : Blood Pressure : / mmHG Vent. Rate : 097 BPM Atrial Rate : 097 BPM P-R Int : 156 ms QRS Dur : 086 ms QT Int : 348 ms P-R-T Axes : 053 052 048 degrees QTc Int : 441 ms Normal sinus rhythm Acute pericarditis Abnormal ECG When compared with ECG of 10-JUL-2023 13:21, ST elevation now present in multiple leads Confirmed by Richard Knapp ([id number]) on 07/11/2023 12:11:26 PM Referred By: REFERRED SELF Confirmed By:Richard Knapp
--- NOTE | 2023-07-11 12:25 | Electrocardiogram Report ---
Test Reason : Blood Pressure : / mmHG Vent. Rate : 083 BPM Atrial Rate : 083 BPM P-R Int : 160 ms QRS Dur : 090 ms QT Int : 374 ms P-R-T Axes : 063 051 057 degrees QTc Int : 439 ms Poor data quality, interpretation may be adversely affected Normal sinus rhythm Acute pericarditis Abnormal ECG When compared with ECG of 10-JUL-2023 18:18, (unconfirmed) No significant change was found Confirmed by Richard Knapp ([id number]) on 07/11/2023 12:25:23 PM Referred By: REFERRED SELF Confirmed By:Richard Knapp
--- NOTE | 2023-07-11 14:55 | Discharge Summary ---
Date of Service July 11, 2023 Admission HPI Per Admitting Provider 47 yo M with a history of Hodgkin's disease in remission for 30 years presents with acute onset chest pain. The pain began around 10pm and is dull and strong, substernal and improved with sitting up. He reports falling asleep and waking up again with the pain twice overnight, the second time he decided to come to the ER with the pain increasing. He denies SOB or decreased functional capacity. He does report having 2-3 episodes of shortness of breath throughout the year, improved with a course of prednisone which has not been present for months now. He has a h/o cough-variant asthma per records and denies taking the Symbicort that was prescribed. He sees allergy, Dr. Clifton and also takes azelastine nasal spray. He was taking floonase nasal spray in conjunction with the azelastine, but stopped this 2/2 nosebleeds. He reports stopping Ajovy for migraines last fall as this was giving him palpitations. He takes Imitrex and occasionally Motrin for abortive treatment of migraines, and reports migraines occur frequently. He denies having chest pain prior to last night. Per review of outpatient records he was seen by cardiology April 2022 for follow-up of cardiovascular risk factor management. As a teenager he was treated for Hodgkin's disease with radiation to the chest and has been in remission for decades, with treatment given through [facility] in [place], [place] in the . During that cardiology visit, he reported no issues with shortness of breath or chest pain but he did have chest wall pain on occasion from costochondritis. He had an echocardiogram at that time which was reviewed at that time reporting some external compression of the posterior wall during contraction which was interpreted as normal motion with some valve sclerosis but no significant pathology. Palpation of his chest wall today doesn't elicit any pain and he reports this would be the case during his prior costochondritis episodes. He does report travelling to [facility] in Apr 2023 and catching an URI, non-covid virus from which he has been recovered for two months. He was given, NSS 500cc, Toradol 10mg IV (4 hours ago), albuterol NEB, morphine 2mg IV, zofran 4mg IV with no improvement in symptoms. ER provider gave solumedrol 60mg IV within the last hour. He reports ongoing discomfort and vitals are 112/87, P 118, R 31, Temp 36.0. He denies any respiratory symptoms, GI symptoms such as diarrhea, no fevers or chills, no weight loss. He is oxygenating well on room air. CT chest with contrast reveals no evidence of acute process in the chest with scattered pulm nodules and traction bronchiectasis noted. Pt reports being aware of this as a side effect of prior HD treatment. Admission Exam Per Admitting Provider CONSTITUTIONAL: WNWD, vitals as above, in moderate distress from pain, better with sitting straight up. RESPIRATORY: clear to auscultation bilaterally aside from some mild crackles at the bases bilaterally. No rales or wheezes, mild tachypnea noted. CARDIOVASCULAR: tachy rate and reg rhythm, S1 and 2 heard without murmurs, gallops or rubs, no JVD, no peripheral edema CHEST: inspection of chest was normal GASTROINTESTINAL: well healed vertical scar in central abdomen, soft, nontender, ND, no guarding MUSCULOSKELETAL: strength 5/5 throughout, head is normocephalic and atraumatic, normal palpation of chest wall without tenderness SKIN: warm and dry, no rashes NEUROLOGIC: CN 2-12 grossly intact, no sensory deficit, normal cognition, normal speech, no tremor PSYCHIATRIC: alert cooperative and oriented to person, place and time. Euthymic mood, makes good eye contact, language grossly intact, recent and remote memory grossly intact Principal Diagnosis Acute pericarditis Possible Lyme disease Discharge Exam Constitutional: WD/WN, vitals as above, NAD, sitting up in bed, pleasant, conversing easily Respiratory: normal respiratory effort, lungs clear to auscultation, no wheeze, rales, rhonchi. Normal insp/exp effort, no accessory muscle use Cardiovascular: RRR, no murmur, no edema Vessels: no JVD or carotid bruit Chest: normal inspection of chest Abdomen: normal bowel sounds, soft, nontender, no hepatosplenomegaly Musculoskeletal: no cyanosis or clubbing, extremities motor strength 5/5 Skin: no rashes, warm and dry normal turgor Neurologic: PERRL, EOMI, accommodation nl, no face palsy, no dysarthria CN's II- XI intact bilaterally and moves all extremities Psychiatric: A+Ox3, euthymic affect Discharge Data Allergies Allergy/AdvReac Type Severity Reaction Status Date / Time No Known Allergies Allergy Verified 11/18/19 05:56 Consultations 07/10/23 10:36 ED Decision to Admit Stat 07/10/23 12:43 Consult Cardiology Routine Ordered Studies 07/10/23 07:33 CT chest diagnostic w con Stat Hospital Course (1) Acute pericarditis: (2) Chest pain: (3) Hodgkins disease: (4) S/P splenectomy: (5) Dyslipidemia: Plan Patient is a 47-year-old male with past medical history of Hodgkin's lymphoma who presents to the ED with chest pain. EKG was consistent with acute pericarditis. Patient was evaluated by cardiology and underwent echocardiogram. This showed EF of 60 to 65%; no pericardial effusion. High sensitive troponin was negative. Lyme screening test with IgG was positive. ESR elevated to 22, CRP elevated to 15.57 During the hospitalization, patient was started on NSAIDs with ibuprofen and colchicine. Patient's chest pain improved. At discharge, he was placed on ibuprofen 800 mg 3 times a day for 1 week; then 400 mg 3 times a day for 1 more week. He was also given 1 month prescription for colchicine. He was also given doxycycline for total of 14 days. Patient to follow-up with PCP; confirmatory Lyme test awaited. Patient will need 3 months of colchicine. You will need repeat CBC, BMP, CRP and ESR during follow-up. Discharge instruction discussed with patient at bedside. Answered questions/queries. Please note the above document was generated using voice recognition software. It may contain grammatical, syntax or spelling errors. Any formal questions or concerns about the content, text or information contained within the body of this dictation should be directly addressed to the provider for clarification Total Time Total Time Spent Total Time Spent (In Minutes): 35 Total Time Includes: Examination of the Patient, Discharge Planning, Medication Reconciliation, Communication With Other Providers and Other Discharge Plan Discharge Items Patient Disposition: Home - Self-Care Reason For Visit: POSSIBLE ACUTE PERICARDITIS CAUSING CHEST PAIN Discharge Diagnosis: Acute pericarditis Activity: Resume your previous activity Non-emergency contact: Primary Care Provider Call non-emergency contact if: you have any medication questions and your symptoms worsen Follow-up/Referrals: Vineet Alejandra MD [Primary Care Provider] - (Date & Time 07/18/2023 9:00 AM Provider Vineet Alejandra MD Department [facility] ) Tone Seals MD [Physician] - (The Cardiology office will contact you for a follow up appointment.) Diet: Regular Addtl Attending Provider Instructions: You were admitted to the hospital due to chest pain. You underwent evaluation by cardiology for the evaluation of the chest pain. The cause for the chest pain is thought secondary to pericarditis (inflammation of the covering of the heart). You are prescribed following medication for it: 1) ibuprofen 400 mg: Please take 800 mg(2 tablets) 3 times a day for 1 week, then take 400 mg (1 tablet) 3 times a day for 1 week 2) colchicine 0.6 mg: Please take 1 tablet twice a day. You will need colchicine for total of 3 months. You have been prescribed for 30 days. You will need renewal of the prescription from your primary care doctor. An appointment will be set up for you for sometime next week The screening test for Lyme was positive. You are prescribed doxycycline 100 mg twice a day for 14 days. The confirmatory test of the Lyme disease is still pending. Please follow-up with your primary care doctor regarding the results. Please follow-up with your primary care doctor as scheduled. You will have repeat EKG during the follow-up as well as repeat of CRP, ESR (inflammatory markers). Pending Studies at Discharge: Yes Studies:: Lyme confirmatory test Stand-Alone Forms: My [facility], Smoking Cessation Medications and DC Order Prescriptions: New doxycycline hyclate 100 mg Capsule 100 mg PO BID 14 Days Qty: 28 0RF colchicine [Colcrys] 0.6 mg Tablet 0.6 mg PO BID 30 Days Qty: 60 0RF ibuprofen 400 mg tablet See Taper PO Q8H Qty: 105 0RF Taper: Taper, Blank 800 mg THREE TIMES A DAY for 7 Days 400 mg THREE TIMES A DAY for 7 Days Continued azelastine 137 mcg (0.1 %) aerosol,spray 2 spray INTRANASAL DAILY sumatriptan succinate [Imitrex] 100 mg Tablet 100 mg PO DIRECTED PRN (Reason: Migraine Headache) Rx Instructions: Take 1 tab at onset of migraine, then 1 more in two hours if needed. No more than 2 tabs in 24 hours. rosuvastatin 10 mg tablet 10 mg PO DAILY omeprazole 20 mg Tablet,Delayed Release (Dr/Ec) 20 mg PO HS PRN (Reason: Other) Discharge Orders: Discharge Order (Routine); Ordered 07/11/23 Ordered By: Dayton Lowe Admission Data Admit Date/Time: 07/10/23 10:46 Attending Provider: Dayton Lowe Admit Provider: Alejandrina De Dios Primary Care Provider: Vineet Alejandra Other Providers: Tone Seals; Alejandrina De Dios Other Interventions: Discharge Summary Assessment (RN) Last Done: 07/11/23 13:16
[2023-07-13 02:17] LABS: 18KDIGG Band NON-REACTIVE; 23KDIGG Band REACTIVE; 23KDIGM Band NON-REACTIVE; 28KDIGG Band NON-REACTIVE; 30KDIGG Band NON-REACTIVE; 39KDIGG Band REACTIVE; 39KDIGM Band NON-REACTIVE; 41KDIGG Band REACTIVE; 41KDIGM Band NON-REACTIVE; 45KDIGG Band NON-REACTIVE; 58KDIGG Band REACTIVE; 66KDIGG Band NON-REACTIVE; 93KDIGG Band REACTIVE; Lyme Antibodies, WB IgG POSITIVE (NEGATIVE); Lyme Antibodies, WB IgM NEGATIVE (NEGATIVE)
== END 2023-07-11 13:49 | disposition home or self-care (01) | DRG 315 ==
LOC: ED 04:50 → SUATTDRO 10:46 → 2N 10:46